=== PATIENT | female | born 1985 ===

== ENCOUNTER 2025-05-19 12:55 | Inpatient (IN) | payer OTHER, SELFPAY ==
--- OUTSIDE RECORDS SUMMARY | 2025-05-02 17:00 | XMS_ITS ---
Author Organization [facility] Address [address] [place] [address] Care Team Providers Care Copra Sampler Name Role Phone Anuel Laguna Primary Care Provider [phone] Migration, Provider Unavailable Unavailable Allergies Allergen (clinical drug ingredient) Drug/Non Drug Allergy documented on EMR Reaction Allergy Type Onset Date Status tramadol traMADol vomiting Drug Allergy Active amoxicillin Amoxicillin Unknown Drug Allergy Act morenita REASON FOR VISIT [facility] Encounter Medications Medication SIG (Take, Route, Frequency, Duration) Notes Start Date End Date Status MiraLax - ONE SCOOP IN 8 OUNCES WATER ORALLY ONCE A DAY for 30 DAYS *Please review and pick correct strength-formula tion from [employer] options. If intended option is not shown, discontinue and re-order from Quick Search* Active metFORMIN HCl ER 750 MG 1 tab(s) orally 2 times a day Active Cyclobenzaprine HCl 5 MG 1 tab(s) orally one in AM and 2 at bedtime for 30 days Active FREESTYLE LITE TEST STRIPS, 50 E11.9 TESTS TWICE A DAY for 50 DAYS *Please review for potential replacement for e-prescription and drug interaction check* Active Omeprazole 40 MG 1 cap(s) orally once a day for 90 days Active Glucose 4 GM 4 tab(s) chewed once for 30 days 08/11/2024 Active FREESTYLE LITE GLUCOSE MONITOR, 1 E11.9 TESTS DAILY for 365 DAYS *Please review for potential replacement for e-prescription and drug interaction check* 12/27/2023 Active Cetirizine HCl 10 MG 1 tab(s) orally once a day for 90 days Active Simvastatin 10 MG 1 tab(s) orally once a day (in the evening) for 90 days Active LANCETS, 100 E 11.9; TESTS TWICE A DAY for 50 DAYS *Please review for potential replacement for e-prescription and drug interaction check* Active OLANZapine 10 MG 1 tab(s) orally twice a day for 30 days 14 day 04/08/25 Ceballosivanna Shi Not-Taking Slynd 4 MG TAKE 1 TABLET BY MOUTH DAILY for 84 Active Gabapentin 800 MG 1 cap(s) orally 2 times a day for 30 days Active VARENICLINE 1 MG 1 TAB(S) ORALLY 2 TIMES A DAY *Please review for potential replacement for e-prescription and drug interaction check* Not-Taking LORazepam 1 MG 1 tab(s) orally twice a day for 28 days [facility] 04/08/25, Please note decrease in dose 04/09/2025 Not-Taking Ventolin HFA 108 (90 Base) MCG/ACT INHALE 2 PUFFS INTO THE LUNGS EVERY SIX HOURS for 16 Active SPIRIVA RESPIMAT 60 ACT 2.5 MCG/INH INHALE 2 PUFFS INTO THE LUNGS DAILY for 30 *Please review for potential replacement for e-prescription and drug interaction check* Active Mounjaro 7.5 MG/0.5 ML INJECT 7.5MG (1 PEN) SUBCUTANEOUSLY EVERY WEEK for 28 *Please review and pick correct strength-formula tion from [employer] options. If intended option is not shown, discontinue and re-order from Quick Search* Active Daily Multiple Vitamins MULTIPLE VITAMINS 1 TAB(S) ORALLY ONCE A DAY for 90 DAYS *Please review and pick correct strength-formula tion from [employer] options. If intended option is not shown, discontinue and re-order from Quick Search* 04/14/2025 Active Social History Sex Assigned At : Social History Observation Description Sex Assigned At Female Encounters Encounter Location Date Provider Diagnosis [facility] [address] [place] [address] 05/02/2025 Provider Migration Plan Of Treatment Next Appt Details Provider Name:Anuel Laguna, 05/21/2025 03:30:00 PM, [address] [place] [address], [phone], Provider Name:Colette flores, 05/26/2025 01:00:00 PM, [address] [place] [address], [phone], Provider Name:Severiano Dwyer, 06/04/2025 11:00:00 AM, [address] [facility], [place], [place], [phone], Progress Notes * Karol HAMB:1985 (39 yo F)Acc No.[id number]:05/02/2025 Patient: Karol SWENSON Provider: :1985 A ge:39 Y S ex:Female Date:05/02/2025 Address:[address] [place] [address], [address] Pcp:Anuel Laguna Subjective: * Chief Complaints: * 1 . [facility] Conversion Encounter. * Medical History: * Medications: T aking FREESTYLE LITE GLUCOSE MONITOR, 1 E11.9 TESTS DAILY , Notes to Pharmacist: *Please review for potential replacement for e-prescription and drug interaction check*, Taking Glucose 4 GM Tablet Chewable 4 tab(s) chewed once , Taking LANCETS, 100 E 11.9; TESTS TWICE A DAY , Notes to Pharmacist: *Please review for potential replacement for e-prescription and drug interaction check*, Taking Simvastatin 10 MG Tablet 1 tab(s) orally once a day (in the evening) , Taking Cetirizine HCl 10 MG Tablet 1 tab(s) orally once a day , Taking MiraLax - POWDER FOR RECONSTITUTION ONE SCOOP IN 8 OUNCES WATER ORALLY ONCE A DAY , Notes to Pharmacist: *Please review and pick correct strength-formulation from [facility] options. If intended option is not shown, discontinue and re-order from Quick Search*, Taking Omeprazole 40 MG Capsule Delayed Release 1 cap(s) orally once a day , Taking FREESTYLE LITE TEST STRIPS, 50 E11.9 TESTS TWICE A DAY , Notes to Pharmacist: *Please review for potential replacement for e-prescription and drug interaction check*, Taking Cyclobenzaprine HCl 5 MG Tablet 1 tab(s) orally one in AM and 2 at bedtime , Taking metFORMIN HCl ER 750 MG Tablet Extended Release 24 Hour 1 tab(s) orally 2 times a day , Taking SPIRIVA RESPIMAT 60 ACT 2.5 MCG/INH AEROSOL INHALE 2 PUFFS INTO THE LUNGS DAILY , Notes to Pharmacist: *Please review for potential replacement for e-prescription and drug interaction check*, Taking Ventolin HFA 108 (90 Base) MCG/ACT Aerosol Solution INHALE 2 PUFFS INTO THE LUNGS EVERY SIX HOURS , Taking Mounjaro 7.5 MG/0.5 ML SOLUTION INJECT 7.5MG (1 PEN) SUBCUTANEOUSLY EVERY WEEK , Notes to Pharmacist: *Please review and pick correct strength-formulation from [employer] options. If intended option is not shown, discontinue and re-order from Quick Search*, Taking Daily Multiple Vitamins MULTIPLE VITAMINS TABLET 1 TAB(S) ORALLY ONCE A DAY , Notes to Pharmacist: *Please review and pick correct strength-formulation from [employer] options. If intended option is not shown, discontinue and re-order from Quick Search*, Taking Gabapentin 800 MG Tablet 1 cap(s) orally 2 times a day , Taking Slynd 4 MG Tablet TAKE 1 TABLET BY MOUTH DAILY , Not-Taking/PRN OLANZapine 10 MG Tablet 1 tab(s) orally twice a day , Notes to Pharmacist: 14 day 04/08/25 Ceballos Jose Guadalupe, Not-Taking/PRN LORazepam 1 MG Tablet 1 tab(s) orally twice a day , Notes to Pharmacist: [facility] 04/08/25, Please note decrease in dose, Not-Taking/PRN VARENICLINE 1 MG TABLET 1 TAB(S) ORALLY 2 TIMES A DAY , Notes to Pharmacist: *Please review for potential replacement for e-prescription and drug interaction check* * Allergies: t raMADol: vomiting - Allergy, Amoxicillin: Lack of Therapeutic Effect. Objective: * Vitals: Assessment: Plan: * Treatment: * Images: Billing Information: * Visit Code: * Procedure Codes: * Electronic signature of Prov ider Migration on 05/19/2025 at 04:02 PM EDT Sign off status: Pending * Provider: Date: 05/02/2025 Generated for Kim solano/Page/Henrietta on: 05/19/2025 04:02 PM EDT
--- OUTSIDE RECORDS SUMMARY | 2025-05-14 05:30 | XMS_ITS ---
Author Organization [facility] Address [address] [place] [id number] Care Team Providers Care Brim Presser Name Role Phone Anuel Laguna Primary Care Provider Colette Gonzales Unavailable [phone] REASON FOR VISIT Office: Supportive Counseling Social History Sex Assigned At : Social History Observation Description Sex Assigned At Female Encounters Encounter Location Date Provider Diagnosis [facility] [address] [place] [phone] 05/14/2025 Colette Gonzales Plan Of Treatment Next Appt Details Provider Name:Anuel Luz Elena, 05/21/2025 03:30:00 PM, [address] [place] [address], [phone], Provider Name:Colette flores, 05/26/2025 01:00:00 PM, [address] [place] [address], [phone], Provider Name:Severiano Dwyer, 06/04/2025 11:00:00 AM, [address] [place] [address], [phone], Progress Notes * Karol HAMDOB:1985 (39 yo F)Acc No.[id number]:05/14/2025 Progress Notes Patient: Karol SWENSON Provider: Es Gonzales :1985 A ge:39 Y S ex:Female Date:05/14/2025 Address:[address] [place] [address], [place], [id number] Pcp:Anuel Laguna Subjective: * Chief Complaints: * 1 . Office: Supportive Counseling. * Medical History: Objective: * Vitals: Assessment: Plan: * Treatment: * Images: Billing Information: * Visit Code: * Procedure Codes: Care Plan Details* * Electronic signature of Hernán Gonzales on 05/19/2025 at 04:02 PM EDT Sign off status: Pending * Provider: Es Gonzales Date: 05/14/2025 Generated for Kim solano/Page/Henrietta on: 05/19/2025 04:02 PM EDT
--- OUTSIDE RECORDS SUMMARY | 2025-05-15 05:02 | XMS_ITS ---
Author Organization [facility] Address [address] [place] [address] Care Team Providers Care Bead Preparer Name Role Phone Anuel Laguna Primary Care Provider REASON FOR VISIT psych concerns Social History Sex Assigned At : Social History Observation Description Sex Assigned At Female Encounters Encounter Location Date Provider Diagnosis [address] [phone] 05/15/2025 Anuel Laguna Plan Of Treatment Next Appt Details Provider Name:Anuel Laguna, 05/21/2025 03:30:00 PM, [address] [place] [address], [phone], Provider Name:Colette flores, 05/26/2025 01:00:00 PM, [address] [place] [address], [phone], Provider Name:Severiano Dwyer, 06/04/2025 11:00:00 AM, [address] [place] [address], [id number], Progress Notes * Kraol HAMDOB:1985 (39 yo F)Acc No.[id number]:05/15/2025 Patient: Karol SWENSON :1985 A ge:39 Y S ex:Female Address:[address] [place] [phone] * * Date:
[2025-05-19 13:07] VITALS: BP 138/80; PULSE 82; O2SAT 99
[2025-05-19 13:08] VITALS: BP 119/81; PULSE 77; RESP 16; TEMP 36.1; O2SAT 100; BMI 30.9
[2025-05-19 13:22] VITALS: BP 119/81; PULSE 77; RESP 16; TEMP 36.1; O2SAT 100
--- NOTE | 2025-05-19 15:01 | ED.PSYCH ---
HPI - Psych General Chief Complaint: Psychiatric Symptoms Stated Complaint: delusional, not med compliant Time Seen by Provider: 05/19/25 13:17 History of Present Illness ED Provider: Garrett Gutierrez MD HPI Narrative: The patient comes from [facility] [place] [facility]. She has been felt to be delusional. No thoughts of suicide or self-harm or HI. Poor medication adherence. Related Data Home Medications ?Medication ?Instructions ?Recorded ?Confirmed cetirizine 10 mg tablet 10 mg PO DAILY 05/19/25 05/19/25 cyclobenzaprine 5 mg tablet 5 mg PO DAILY 05/19/25 05/19/25 gabapentin 800 mg tablet 800 mg PO BID 05/19/25 05/19/25 metformin 750 mg tablet,extended 750 mg PO BID 05/19/25 05/19/25 release 24 hr omeprazole 40 mg capsule,delayed 40 mg PO DAILY 05/19/25 05/19/25 release Allergies Allergy/AdvReac Type Severity Reaction Status Date / Time Seasonal Allergies Allergy Sneezing Verified 05/19/25 13:21 [facility] Social History Social History Household Members: None Housing: Apartment Do you presently have visiting nurse or other home services: Yes Patient Tobacco Use Status: Former Tobacco user Tobacco use type: Cigarette Smoked in Last 30 Days: No e-Cigarette/Vaping Use: Never Used Patient Interested in Nicotine Replacement: No Patient Given Instructions on How to Stop Smoking: No Second Hand Smoke Exposure: No Use of substances other than those prescribed or required for medical reasons: Yes Substance Use Type: Marijuana Substance Use Frequency: Daily Currently Displaying Signs/Symptoms of Drug Intoxication Withdrawal: No Spiritual Healthcare Practices: prays to God [facility] Practices: denies Cultural Healthcare Practices: denies Advance Directives: No Advance Directives Information Provided: No Do you have thoughts of harming others: None Do you have a plan to hurt others: No Plan Recently lost weight without trying: Unsure How much weight loss: Unsure Eating poorly because of decreased appetite: No Nutrition screen score: 4 Nutrition Risks: No Nutritional Risk Patient : No : No Poor oral hygiene: No Physical Exam Exam: Exam: Appearance: Alert. Oriented X3. No acute distress. Eyes: Pupils equal, round and reactive to light. ENT: Pharynx normal. Neck: Normal inspection. Neck supple. CVS: Normal heart rate and rhythm. Pulses normal. Respiratory: No respiratory distress. Breath sounds normal. Abdomen: Soft and nontender. Skin: Skin warm and dry. Normal skin color. Extremities: No lower extremity edema. Neuro: Oriented X 3. No motor deficit. No sensory deficit. cranial nerve exam not applicable Vital Signs: Vital Signs: Last Vital Signs Temp 98.6 F 05/20/25 08:25 Pulse 80 05/20/25 08:25 Resp 20 05/20/25 08:25 BP 137/81 05/20/25 08:25 Pulse Ox 97 05/20/25 08:25 O2 Del Method Room Air 05/20/25 08:25 BMI result Body Mass Index 30.9 Medications Administered Generic Name Dose Route Start Last Admin Trade Name Freq PRN Reason Stop Dose Admin Cyclobenzaprine HCl 5 mg 05/20/25 09:00 05/20/25 08:28 Cyclobenzaprine Hcl 5 Mg Tablet PO Not Given DAILY [facility] Gabapentin 800 mg 05/19/25 21:00 05/20/25 08:28 Gabapentin 400 Mg Capsule PO 800 mg BID ANJALI Administration Loratadine 10 mg 05/20/25 09:00 05/20/25 08:27 Loratadine 10 Mg Tablet PO 10 mg DAILY ANJALI Administration Metformin HCl 750 mg 05/19/25 21:00 05/20/25 08:27 Metformin Hcl Er 750 Mg Tab.Er.24h PO 750 mg BID [facility] Administration Omeprazole 40 mg 05/20/25 06:30 05/20/25 06:29 Omeprazole 40 Mg Capsule. PO 40 mg DAILY@0630 [facility] Administration Discontinued Medications Generic Name Dose Route Start Last Admin Trade Name Freq PRN Reason Stop Dose Admin Influenza Virus Vaccine 0.5 ml 05/19/25 18:42 05/20/25 08:29 Flu Vacc In8559-90(6mo Up)/Pf 0.5 Ml Syringe IM 05/19/25 18:43 Not Given .ONCE ONE Insulin Human Lispro 0 unit 05/19/25 21:00 05/20/25 12:18 Insulin Lispro 100 Unit/Ml 3 Ml Vial SUBCUT Not Given QIDACHS [facility] Protocol Medical Decision Making Medical Decision Making MDM Narrative: Medical Decision Makin-year-old female sent for delusions. The patient is not endorsing SI or HI and is comfortable. She is making spiritual gestures and does not appear in any distress. She has no acute medical complaints and her medical workup is reassuring. Specifically patient has nonspecific leukocytosis 11.2 with no clinical signs of infection nor any documented fever. There was no neutrophil predominance or bands. Patient has minimal transaminitis which could be multifactorial. No indication for acute imaging this is a patient has no abdominal pain or bilirubin elevation. If workup is pursued non emergently would recommend repeat LFTs in 48 hours if up trending GI consultation would be warranted Preliminary Favored Differential Diagnosis: Behavioral health decompensation, psychosis, among additional considered etiologies Testing Interpreted Independently: ?See below for details Radiology or Lab testing Results Reviewed: ?See below for details Consults: ?Behavioral health team Independent Historians/External Chart Reviews: ?See below for details Social Determinants of Health Impacting MDM/Planning: ?See below for details Lab Data 05/19/25 14:59 05/19/25 14:59 Labs: Lab Results 05/19/25 Range/Units 14:59 WBC 11.2 H (4.8-10.8) X10*3/uL RBC 5.10 (4.20-5.50) X10*6/uL Hgb 14.6 (12.0-16.0) g/dl Hct 45.7 (37.0-47.0) % MCV 89.6 (80.0-98.0) fL MCH 28.6 (27.0-33.0) pg MCHC 31.9 (31.0-35.0) g/dl RDW 13.6 (11.0-16.0) % Plt Count 231 (160-400) X10*3/uL MPV 9.2 L (9.4-12.3) fL Immature Gran % (Auto) 0.3 (0.0-0.4) % Neut % (Auto) 56.2 (45-73) % Lymph % (Auto) 36.0 (20-40) % Arthur % (Auto) 4.8 (2-11) % Eos % (Auto) 2.4 (0-4) % Baso % (Auto) 0.3 (0-2) % Lymph # (Auto) 4.0 (1.2-4.9) X10*3/uL Arthur # (Auto) 0.5 (0.1-1.2) X10*3/uL Eos # (Auto) 0.3 (0.0-0.4) X10*3/uL Baso # (Auto) 0.0 (0.0-0.2) X10*3/uL Abs Immat Gran (auto) 0.03 (0.00-0.03) X10*3/uL Absolute Neuts (auto) 6.3 (2.0-8.3) x10*3/uL Absolute Nucleated RBC 0.000 (0.0-0.012) X10*3/uL Nucleated RBC % (auto) 0.0 (0.0-0.2) /100WBC Sodium 143 (135-145) mmol/L Potassium 3.8 (3.3-5.1) mmol/L Chloride 107 (96-108) mmol/L Carbon Dioxide 26 (22-29) mmol/L Anion Gap 14 (12-20) BUN 10 (9-16) mg/dL Creatinine 0.71 (0.5-1.4) mg/dL Estim Creat Clear Calc 108.8 Estimated GFR > 60 Random Glucose 73 (60-115) mg/dL Calcium 9.8 (8.4-10.2) mg/dL Total Bilirubin 0.6 (0.0-1.0) mg/dL AST 57 H (5-31) U/L ALT 95 H (0-31) U/L Alkaline Phosphatase 136 H (39-117) U/L Total Protein 8.4 H (6.5-8.0) g/dL Albumin 5.1 H (3.5-5.0) g/dL Ethyl Alcohol < 10 mg/dL Discharge Plan Discharge Clinical Impression: Acute anxiety Patient Disposition: Admitted As Inpatient Interventions: Admission Worksheet (ED) Last Done: 05/19/25 17:39 Discharge Date/Time: 05/19/25 17:40
[2025-05-19 15:07] LABS: MANUAL DIFF FLAG NO
[2025-05-19 15:08] LABS: Hematocrit 45.7 % (37.0-47.0); Hemoglobin 14.6 g/dl (12.0-16.0); Imm Gran Abs Auto 0.03 X10*3/uL (0.00-0.03); Imm Gran Pct Auto 0.3 % (0.0-0.4); Lymphocytes Absolute Auto 4.0 X10*3/uL (1.2-4.9); Mean Corpuscular HGB Conc 31.9 g/dl (31.0-35.0); Mean Corpuscular Hemoglobin 28.6 pg (27.0-33.0); Mean Corpuscular Volume 89.6 fL (80.0-98.0); NRBC Abs Auto 0.000 X10*3/uL (0.0-0.012); NRBC Pct Auto 0.0 /100WBC (0.0-0.2); Platelet Count 231 X10*3/uL (160-400); Red Blood Count 5.10 X10*6/uL (4.20-5.50); White Blood Count 11.2 X10*3/uL (4.8-10.8)
[2025-05-19 15:25] LABS: Alanine Aminotransferase 95 U/L (0-31); Albumin Level 5.1 g/dL (3.5-5.0); Alkaline Phosphatase 136 U/L (39-117); Anion Gap 14 (12-20); Aspartate Amino Transferase 57 U/L (5-31); Blood Urea Nitrogen 10 mg/dL (9-16); Calcium 9.8 mg/dL (8.4-10.2); Carbon Dioxide 26 mmol/L (22-29); Chloride 107 mmol/L (96-108); Creatinine Clr Calc Pharmacy 108.8; Estimated Glomerular Filt Rate > 60; Potassium 3.8 mmol/L (3.3-5.1); Sodium 143 mmol/L (135-145); Total Protein 8.4 g/dL (6.5-8.0)
--- OUTSIDE RECORDS SUMMARY | 2025-05-19 16:03 | XMS_ITS | Patient Health Record ---
Author Organization [facility] Address [address] [place] [address] Care Team Providers [facility] Name Role Phone AbelinoRodney thomasw Primary Care Provider Severiano Dwyer Unavailable [phone] [facility], Nursing Unavailable [phone] Colette Gonzales Unavailable [phone] [facility], CHW Unavailable [phone] Migration, Provider Unavailable Unavailable Allergies Allergen (clinical drug ingredient) Drug/Non Drug Allergy documented on EMR Reaction Allergy Type Onset Date Status tramadol traMADol vomiting Drug Allergy Active amoxicillin Amoxicillin Unknown Drug Allergy Act morenita Results Component Value Reference Range Notes HEMOGLOBIN A1c Reviewed date:10/17/2024 12:15:32 PM Interpretation:7.4 Performing Lab:NL2, [facility] [employer] [id number] Ash Brown Notes/Report: NON-FASTING NON-FASTING HEMOGLOBIN A1c TNP TEST NOT PERFORMED No lavender-top tube received. ADD ON BASIC METABOLIC PANEL Reviewed date:10/14/2024 02:16:45 PM Interpretation:glu 215 Performing Lab:NL2, [facility] [employer] [id number] Ash Brown Notes/Report: NON-FASTING NON-FASTING GLUCOSE 215 65-99 mg/dL Fasting reference interval For someone without known diabetes, a glucose value >125 mg/dL indicates that they may have diabetes and this should be confirmed with a follow-up test. UREA NITROGEN (BUN) 12 7-25 mg/dL CREATININE 0.76 0.50-0.97 mg/dL EGFR 102 > OR = 60 mL/min/1.73m2 BUN/CREATININE RATIO SEE NOTE: 6-22 (calc) Not Reported: BUN and Creatinine are within reference range. SODIUM 135 135-146 mmol/L POTASSIUM 4.4 3.5-5.3 mmol/L CHLORIDE 102 98-110 mmol/L CARBON DIOXIDE 21 20-32 mmol/L CALCIUM 9.7 8.6-10.2 mg/dL COMMENT An add-on panel was requested on a serum sample that has been in storage beyond the published stability of various analytes. Certain analytes, including CO2, Potassium, Sodium, Chloride and Total Bilirubin (if applicable) are more sensitive to extended storage. Clinical correlation is recommended for those tests. BASIC METABOLIC PANEL Reviewed date:01/01/2025 05:05:16 PM Interpretation:glu 142 Performing Lab:PFSweb, [facility] Ash Brown Notes/Report: NON-FASTING NON-FASTING GLUCOSE 142 65-99 mg/dL Fasting reference interval For someone without known diabetes, a glucose value >125 mg/dL indicates that they may have diabetes and this should be confirmed with a follow-up test. UREA NITROGEN (BUN) 10 7-25 mg/dL CREATININE 0.76 0.50-0.97 mg/dL EGFR 102 > OR = 60 mL/min/1.73m2 BUN/CREATININE RATIO SEE NOTE: 6-22 (calc) Not Reported: BUN and Creatinine are within reference range. SODIUM 138 135-146 mmol/L POTASSIUM 4.4 3.5-5.3 mmol/L CHLORIDE 103 98-110 mmol/L CARBON DIOXIDE 26 20-32 mmol/L CALCIUM 9.6 8.6-10.2 mg/dL HEMOGLOBIN A1c Reviewed date:01/01/2025 05:06:10 PM Interpretation:7.4 Performing Lab:[facility], [facility]–1983, [facility] Ash Brown Notes/Report: NON-FASTING NON-FASTING HEMOGLOBIN A1c 7.4 <5.7 % of total Hgb For someone without known diabetes, a hemoglobin A1c value of 6.5% or greater indicates that they may have diabetes and this should be confirmed with a follow-up test. For someone with known diabetes, a value <7% indicates that their diabetes is well controlled and a value greater than or equal to 7% indicates suboptimal control. A1c targets should be individualized based on duration of diabetes, age, comorbid conditions, and other considerations. Currently, no consensus exists regarding use of hemoglobin A1c for diagnosis of diabetes for children. MICROALBUMIN, RANDOM URINE ( W/CREATININE) Reviewed date:02/16/2025 01:10:11 PM Interpretation:Normal Performing Lab:PFSweb, [facility] Ash Brown Notes/Report: NON-FASTING NON-FASTING NON-FASTING CREATININE, RANDOM URINE 158 20-275 mg/dL ALBUMIN, URINE 0.5 See Note: mg/dL Reference Range: Reference Range Not established ALBUMIN/CREATININE RATIO, RANDOM URINE 3 <30 mg/g creat The ADA defines abnormalities in albumin excretion as follows: Albuminuria Category Result (mg/g creatinine) Normal to Mildly increased <30 Moderately increased 30-299 Severely increased > OR = 300 The ADA recommends that at least two of three specimens collected within a 3-6 month period be abnormal before considering a patient to be within a diagnostic category. HEPATIC FUNCTION PANEL Reviewed date:02/11/2025 08:17:03 AM Interpretation:AST/ALT; FIB 4 1.25 Performing Lab:PFSweb, [facility] Ash Martinez Notes/Report: NON-FASTING NON-FASTING NON-FASTING PROTEIN, TOTAL 7.1 6.1-8.1 g/dL ALBUMIN 4.3 3.6-5.1 g/dL GLOBULIN 2.8 1.9-3.7 g/dL (calc) ALBUMIN/GLOBULIN RATIO 1.5 1.0-2.5 (calc) BILIRUBIN, TOTAL 0.6 0.2-1.2 mg/dL BILIRUBIN, DIRECT 0.1 < OR = 0.2 mg/dL BILIRUBIN, INDIRECT 0.5 0.2-1.2 mg/dL (calc) ALKALINE PHOSPHATASE 109 31-125 U/L AST 46 10-30 U/L ALT 61 6-29 U/L CBC (H/H, RBC, INDICES, WBC, PLT) Reviewed date:02/11/2025 07:32:43 AM Interpretation:Normal Performing Lab:NLPFSweb, [facility] Women[facility] Jessikajosé Alondra Brown Notes/Report: NON-FASTING NON-FASTING NON-FASTING WHITE BLOOD CELL COUNT 8.5 3.8-10.8 Thousand/ uL RED BLOOD CELL COUNT 4.65 3.80-5.10 Million/uL HEMOGLOBIN 13.7 11.7-15.5 g/dL HEMATOCRIT 42.1 35.0-45.0 % MCV 90.5 80.0-100.0 fL MCH 29.5 27.0-33.0 pg MCHC 32.5 32.0-36.0 g/dL For adults, a slight decrease in the calculated MCHC value (in the range of 30 to 32 g/dL) is most likely not clinically significant; however, it should be interpreted with caution in correlation with other red cell parameters and the patient's clinical condition. RDW 12.6 11.0-15.0 % PLATELET COUNT 189 140-400 Thousand/uL MPV 10.5 7.5-12.5 fL MR Brain Angiography WO Reviewed date:02/28/2025 01:56:08 PM Interpretation:Negative Performing Lab: Notes/Report: Negative ADD ON BASIC METABOLIC PANEL Reviewed date:10/09/2024 04:25:09 PM Interpretation:glu 215 Performing Lab:MARNIE, [facility] Women[facility] Jessikajosé Alondra Brown Notes/Report: NON-FASTING NON-FASTING GLUCOSE 215 65-99 mg/dL Fasting reference interval For someone without known diabetes, a glucose value >125 mg/dL indicates that they may have diabetes and this should be confirmed with a follow-up test. UREA NITROGEN (BUN) 12 7-25 mg/dL CREATININE 0.76 0.50-0.97 mg/dL EGFR 102 > OR = 60 mL/min/1.73m2 BUN/CREATININE RATIO SEE NOTE: 6-22 (calc) Not Reported: BUN and Creatinine are within reference range. SODIUM 135 135-146 mmol/L POTASSIUM 4.4 3.5-5.3 mmol/L CHLORIDE 102 98-110 mmol/L CARBON DIOXIDE 21 20-32 mmol/L CALCIUM 9.7 8.6-10.2 mg/dL COMMENT An add-on panel was requested on a serum sample that has been in storage beyond the published stability of various analytes. Certain analytes, including CO2, Potassium, Sodium, Chloride and Total Bilirubin (if applicable) are more sensitive to extended storage. Clinical correlation is recommended for those tests. LIPID PANEL Reviewed date:03/27/2025 08:01:01 AM Interpretation:LDL 82 Performing Lab: Notes/Report: LDL 82 TRIGLYCERIDES 170 CHOLESTEROL, TOTAL 153 HDL CHOLESTEROL 37 LDL-CHOLESTEROL 82 TSH Reviewed date:03/27/2025 08:01:45 AM Interpretation:Normal Performing Lab: Notes/Report: Normal TSH 2.02 HEMOGLOBIN A1c Reviewed date:03/27/2025 08:02:28 AM Interpretation:6.7 Performing Lab: Notes/Report: 6.7 HEMOGLOBIN A1c 6.7 FOLATE, SERUM Reviewed date:03/27/2025 08:40:28 AM Interpretation:Normal Performing Lab: Notes/Report: Normal FOLATE, SERUM 14.1 VITAMIN B12 Reviewed date:03/27/2025 08:41:08 AM Interpretation:Normal Performing Lab: Notes/Report: Normal VITAMIN B12 718 VITAMIN D,25-OH,TOTAL,IA Reviewed date:03/27/2025 08:41:44 AM Interpretation:Normal Performing Lab: Notes/Report: Normal VITAMIN D,25-OH,TOTAL,IA 50 RPR (DX) W/REFL TITER AND CO NFIRMATORY TESTING Reviewed date:03/31/2025 01:21:05 PM Interpretation:nonreactive Performing Lab: Notes/Report: nonreactive CATRACHITA IFA, W/REFL TO TITER/PAT TERN/CASCADE Reviewed date:04/03/2025 08:40:56 AM Interpretation:1:80 Performing Lab: Notes/Report: 1:80 DNA (DS) ANTIBODY 1:80 centromere CATRACHITA SCREEN, IFA POS Diabetic Foot Exam Reviewed date:04/14/2025 10:20:56 PM Interpretation:Normal Performing Lab: Notes/Report: Normal Reason For Referral Reason PT-1 to [facility] of [address] - 12 visits/ year Referral Organization [facility] Referring Provider First Name Anuel Referring Provider Last Name Luz Elena Referring Provider Speciality Internal M edicine Referred Provider PT, -1 Referral Priority Routine Reason Rula, [address] [place] [address] P: [phone] F: [phone] For repairs to walker Diagnosis 1 Chronic obstructive pulmonary disease, unspecified (J44.9) Diagnosis 2 Lumbago with sciatic a, unspecified side (M54.40) Referral Organization [facility] Referring Provider First Name Anuel Referring Provider Last Name Luz Elena Referring Provider Speciality Internal edicine Referred Provider [facility] General Notes Alicia Fulton 08:21:19 AM > Faxed to Nayeli Huerta Katelyn 11/25/2024 01:58:38 PM > all set - repairs completed Referral Priority Routine Reason [facility], [address] [place] [address] Bandar Khanna, [place], [place] P: [phone] F: [phone] Hall: [facility] neuroendovascular. Per our converation 01/06, woman with FH anueyrsmal rupture (It seems) who had 2 mm carotid cave aneurysm on MR study this month. Thank you for calling her to schedule! Referral Organization [facility] Referring Provider First Name Anuel Referring Provider Last Name Luz Elena Referring Provider Speciality Internal edicine Referred Provider [facility]rology ([facility]) Referred Provider Specialty Neurology General Notes Anuel Laguna 01/06 05:37:28 PM >is office will call her to schedule. He has the phonenKirstin diehl Paris 01/07/2025 08:36:55 AM > [facility] Katelyn 04/14/2025 09:54:31 AM > pt seen note requested Referral Priority Routine Referral Appointment Date 02/19/2025 Reason Judit Ro llator repair specifically the back wheels Diagnosis 1 Chronic obstructive pulmonary disease, unspecified (J44.9) Diagnosis 2 Lumbago with sciatic a, unspecified side (M54.40) Referral Organization [facility] Referring Provider First Name Anuel Referring Provider Last Name Luz Elena Referring Provider Speciality Internal edicine Referred Provider [facility] General Notes Rubi Tyler 01/30/2025 11:32:34 AM > faxed to Nayeli huerta Katelyn 02/09/2025 10:20:56 AM > wheels changed Referral Priority Routine Reason Davis MS. Ham needs assistance with bathing, cooking and shopping. She is moving to her own apartment and now needs [employer] services. Referral Organization [facility] Referring Provider First Name Anuel Referring Provider Last Name Abelinomartha Referring Provider Speciality Internal M edicine General Notes Krysta Ambriz 04/29 09:17:39 AM > faxed Referral Priority Routine Medications Medication SIG (Take, Route, Frequency, Duration) Notes Start Date End Date Status Slynd 4 mg TAKE 1 TABLET BY MOUTH DAILY for 84 Active Glucose 4 GM 4 tab(s) chewed once for 30 days 08/11/2024 Active FREESTYLE LITE GLUCOSE MONITOR, 1 E11.9 TESTS DAILY for 365 DAYS *Please review for potential replacement for e-prescription and drug interaction check* 12/27/2023 Active Ventolin HFA 108 (90 Base) MCG/ACT INHALE 2 PUFFS INTO THE LUNGS EVERY SIX HOURS for 16 Active SPIRIVA RESPIMAT 60 ACT 2.5 MCG/INH INHALE 2 PUFFS INTO THE LUNGS DAILY for 30 *Please review for potential replacement for e-prescription and drug interaction check* Active Mounjaro 7.5 MG/0.5ML INJECT 7.5MG (1 PEN) SUBCUTANEOUSLY EVERY WEEK for 28 Active MiraLax - ONE SCOOP IN 8 OUNCES WATER ORALLY ONCE A DAY for 30 DAYS *Please review and pick correct strength-formula tion from [employer] options. If intended option is not shown, discontinue and re-order from Quick Search* Active OLANZapine 10 MG 1 tab(s) orally twice a day for 30 days 14 day 04/08/25 Tucker Shi Not-Taking Cetirizine HCl 10 MG 1 tab(s) orally once a day for 90 days Active Simvastatin 10 MG 1 tab(s) orally once a day (in the evening) for 90 days Active Gabapentin 800 MG 1 cap(s) orally 2 times a day for 30 days Active LANCETS, 100 E 11.9; TESTS TWICE A DAY for 50 DAYS *Please review for potential replacement for e-prescription and drug interaction check* Active Daily Multiple Vitamins MULTIPLE VITAMINS 1 TAB(S) ORALLY ONCE A DAY for 90 DAYS *Please review and pick correct strength-formula tion from [employer] options. If intended option is not shown, discontinue and re-order from Quick Search* 04/14/2025 Active Varenicline Tartrate 1 mg TAKE 1 TABLET BY MOUTH TWICE A DAY for 28 Active metFORMIN HCl ER 750 MG 1 [...] once a day for 90 days Active LORazepam 1 MG 1 tab(s) orally twice a day for 28 days [facility] 04/08/25, Please note decrease in dose 04/09/2025 Not-Taking Immunizations Vaccine Route Administration Date Status Comme nts Moderna Covid-19 Vaccine Administration - First Dose (Single Dose 100MCG/0.5ML 1ST) IM Intramuscular 12/29/2020 Administered Moderna Covid-19 Vaccine Administration - Second Dose (Single Dose 100 MCG/0.5ML 2ND) IM Intramuscular 02/03/2021 Administered Tdap IM Intramuscular 06/21/2023 Administered Social History Tobacco Use: Social History Observation Description Date Details (start date - stop date) Current Smoker NA - NA Sex Assigned At : Social History Observation Description Sex Assigned At Female Tobacco Use Assessment MU Question Answer Notes What is your current smoking status? current smoker How often do you smoke? every day How many cigarettes a day do you smoke? 6-[address] How soon after you wake up d o you smoke your first cigarette? 6-30 minutes Are you interested in quitting? has been cutting down on smoking gradually as a strategy to quit smoking Patient counseled on the sam gers of tobacco use and advised to quit: 08/23/2023 Problems Problem Type SNOMED Code ICD Code Onset Dates Problem Status W/U Status Risk Notes Problem Diabetic peripheral neuropathy associated with type 2 diabetes mellitus (4129508594703) Type 2 diabetes mellitus with diabetic neuropathy, unspecified (E11.40) Active confirmed Problem Type II diabetes mellitus without complication (035984395) Type 2 diabetes mellitus without complications (E11.9) Active confirmed Problem Morbid obesity (disorder) (593588546) Morbid (severe) obesity due to excess calories (E66.01) Active confirmed Problem Hyperlipidemia (55467176) Hyperlipidemia, unspecified (E78.5) Active confirmed Problem Cannabis abuse (96742877) 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) Active confirmed Problem Cannabis dependence (16728149) Cannabis dependence, uncomplicated (F12.20) Active confirmed Problem Tobacco user (190716583) Nicotine dependence, cigarettes, uncomplicated (F17.210) Active confirmed Problem Delusional disorder (69770670) Delusional disorders (F22) Active confirmed Problem Moderate recurrent major depression (06371489) Major depressive disorder, recurrent, moderate (F33.1) Active confirmed Problem Anxiety disorder (084005322) Anxiety disorder, unspecified (F41.9) Active confirmed Problem Post-traumatic stress disorder (47698973) Post-traumatic stress disorder, unspecified (F43.10) Active confirmed Problem Obstructive sleep apnea syndrome (disorder) (04723234) Obstructive sleep apnea (adult) (pediatric) (G47.33) Active confirmed Problem Hereditary disorder of nervous system (553610127) Hereditary and idiopathic neuropathy, unspecified (G60.9) Active confirmed Problem Hearing loss (37650283) Unspecified hearing loss, left ear (H91.92) Active confirmed Problem Aneurysm (921774569) Aneurysm of unspecified site (I72.9) Active confirmed Problem Chronic obstructive pulmonary disease (77906046) Chronic obstructive pulmonary disease, unspecified (J44.9) Active confirmed Problem Complete edentulism (352857045) Complete loss of teeth, unspecified cause, unspecified class (K08.109) Active confirmed Problem Gastro-esophageal reflux disease without esophagitis (293172721) Gastro-esophagea l reflux disease without esophagitis (K21.9) Active confirmed Problem Slow transit constipation (05989121) Slow transit constipation (K59.01) Active confirmed Problem Sciatica (57777925) Lumbago with sciatica, unspecified side (M54.40) Active confirmed Problem Bursal cyst (7526316) Other bursal cyst, unspecified site (M71.30) Active confirmed Problem Plantar fascial fibromatosis (16011046) Plantar fascial fibromatosis (M72.2) Active confirmed Problem Tobacco use (775027870) Tobacco use (Z72.0) Active confirmed Problem Family history of stroke (352765273) Family history of stroke (Z82.3) Active confirmed Problem Sheltered homelessness (377740666070886) Sheltered homelessness (Z59.01) Active confirmed Problem Body mass index 40+ - severely obese (985350977) Body mass index [BMI] 40.0-44.9, adult (Z68.41) Active confirmed Problem Body mass index 35.00 to 39.99 (107418649187775) Body mass index [BMI] 39.0-39.9, adult (Z68.39) Inactive confirmed Vital Signs Temperature 97.7 degrees Fahrenheit 04/30/2025 Blood pressure diastolic 76 04/30/2025 Oximetry 98 04/30/2025 Height 64 in 04/30/2025 Blood pressure systolic 127 04/30/2025 Weight 231.5 lbs 04/30/2025 BMI 39.73 kg/m2 04/30/2025 Encounters Encounter Location Date Provider Diagnosis [address] [address] 05/02/2025 Provider Migration [facility] for [address] [id number] 06/26/2024 Anuel Laguna Encounter for screening for COVID-19 Z11.52 ; Chronic obstructive pulmonary disease, unspecified J44.9 ; Sheltered homelessness Z59.01 ; Tobacco use Z72.0 ; Type 2 diabetes mellitus without complications E11.9 ; Body mass index [BMI] 40.0-44.9, adult Z68.41 ; Morbid (severe) obesity due to excess calories E66.01 ; Anxiety disorder, unspecified F41.9 and Obstructive sleep apnea (adult) (pediatric) G47.33 [facility] for [address] [id number] 08/07/2024 Anuel Laguna Encounter for screening for COVID-19 Z11.52 ; Nicotine dependence, cigarettes, uncomplicated F17.210 ; Type 2 diabetes mellitus without complications E11.9 ; Tobacco use Z72.0 ; Obstructive sleep apnea (adult) (pediatric) G47.33 ; Morbid (severe) obesity due to excess calories E66.01 and Body mass index [BMI] 40.0-44.9, adult Z68.41 [facility] for [address] [id number] 09/30/2024 Anuel Laguna Encounter for screening for COVID-19 Z11.52 ; Type 2 diabetes mellitus without complications E11.9 ; Chronic obstructive pulmonary disease, unspecified J44.9 ; Nicotine dependence, cigarettes, uncomplicated F17.210 ; Sheltered homelessness Z59.01 ; Anxiety disorder, unspecified F41.9 ; Morbid (severe) obesity due to excess calories E66.01 ; Body mass index [BMI] 40.0-44.9, adult Z68.41 and Lumbago with sciatica, unspecified side M54.40 [facility] for [address] [id number] 10/02/2024 [facility] Type 2 diabetes mellitus without complications E11.9 [facility] for [address] [id number] 10/09/2024 Nursing [facility] Type 2 diabetes mellitus without complications E11.9 [facility] for [address] [id number] 11/25/2024 Anuel Laguna Encounter for screening for COVID-19 Z11.52 ; Type 2 diabetes mellitus without complications E11.9 ; Encounter for other screening for malignant neoplasm of breast Z12.39 ; Body mass index [BMI] 40.0-44.9, adult Z68.41 ; Morbid (severe) obesity due to excess calories E66.01 ; Family history of stroke Z82.3 ; Nicotine dependence, cigarettes, uncomplicated F17.210 and Obstructive sleep apnea (adult) (pediatric) G47.33 [facility] for [address] [id number] 01/06/2025 Anuel Laguna Encounter for screening for COVID-19 Z11.52 ; Aneurysm of unspecified site I72.9 ; Type 2 diabetes mellitus without complications E11.9 ; Morbid (severe) obesity due to excess calories E66.01 and Sheltered homelessness Z59.01 [facility] [address] [place] [id number] 01/15/2025 [facility] for [address] [id number] 02/10/2025 Nursing [facility] Type 2 diabetes mellitus without complications E11.9 and Morbid (severe) obesity due to excess calories E66.01 [facility] for [address] [id number] 02/26/2025 Severiano Dwyer Major depressive disorder, recurrent, moderate F33.1 ; Post-traumatic stress disorder, unspecified F43.10 ; Anxiety disorder, unspecified F41.9 ; Delusional disorders F22 ; Type 2 diabetes mellitus without complications E11.9 ; Morbid (severe) obesity due to excess calories E66.01 ; Nicotine dependence, cigarettes, uncomplicated F17.210 ; Cannabis dependence, uncomplicated F12.20 and Encounter for screening for COVID-[address] Z[address] [id number] 03/05/2025 Anuel Laguna Encounter for screening for COVID-19 Z11.52 ; Plantar fascial fibromatosis M72.2 ; Type 2 diabetes mellitus with diabetic neuropathy, unspecified E11.40 ; Hereditary and idiopathic neuropathy, unspecified G60.9 ; Tobacco use Z72.0 ; Sheltered homelessness Z59.01 ; Body mass index [BMI] 40.0-44.9, adult Z68.41 and Morbid (severe) obesity due to excess calories E66.[address] [id number] 03/05/2025 Colette Gonzales Major depressive disorder, recurrent, moderate F33.1 ; Post-traumatic stress disorder, unspecified F43.10 and Encounter for screening for COVID-19 Z11.[address] [id number] 04/09/2025 Severiano Dwyer Delusional disorders F22 ; Post-traumatic stress disorder, unspecified F43.10 ; Anxiety disorder, unspecified F41.9 and Encounter for screening for COVID-19 Z11.[address] [id number] 04/14/2025 Anuel Laguna Encounter for screening for COVID-19 Z11.52 ; Type 2 diabetes mellitus with diabetic neuropathy, unspecified E11.40 ; Chronic obstructive pulmonary disease, unspecified J44.9 ; Sheltered homelessness Z59.01 ; Tobacco use Z72.0 ; Post-traumatic stress disorder, unspecified F43.10 ; Type 2 diabetes mellitus without complications E11.9 ; Obstructive sleep apnea (adult) (pediatric) G47.33 ; Family history of stroke Z82.3 ; Hereditary and idiopathic neuropathy, unspecified G60.9 ; Body mass index [BMI] 40.0-44.9, adult Z68.41 and Morbid (severe) obesity due to excess calories E66.01 [facility] [address], [place] [id number] 04/16/2025 Colette Gonzales Delusional disorders F22 ; Major depressive disorder, recurrent, moderate F33.1 ; Post-traumatic stress disorder, unspecified F43.10 and Encounter for screening for COVID-19 Z11.52 [facility] [address], [place] [id number] 04/30/2025 Severiano Spearsvey Delusional disorders F22 ; Post-traumatic stress disorder, unspecified F43.10 ; Anxiety disorder, unspecified F41.9 and Encounter for screening for COVID-[address] [address] 05/15/2025 [facility] [address] [phone] 05/19/[address] [phone] 08/08/[address] [phone] 08/11/[address] [phone] 09/02/2024 [facility] [address] [place] [id number] 09/02/2024 [facility] [address] [place] [id number] 09/10/[address] [phone] 09/19/[address] [phone] 09/30/[address] [id number] 09/30/[address] [id number] 09/30/[address] [id number] 10/13/2024 Anuel Laguna [facility] [address] [place], [place] [phone] 10/14/2024 Anuel Laguna [facility] [address] [place] [phone] 10/14/2024 Anuel Laguna [facility] [address] [place] [phone] 11/03/2024 Anuel Laguna Type 2 diabetes mellitus without complications E11.9 [facility] [address] [place], [place] [phone] 12/16/2024 Anuel Laguna [facility] [address] [place], [place] [phone] 01/14/2025 Anuel Laguna [facility] [address] [place] [phone] 01/15/2025 Anuel Laguna [facility] [address] [place] [phone] 01/27/2025 Anuel Laguna [facility] [address] [place] [phone] 01/28/2025 Anuel Laguna [facility] [address] [place] [phone] 01/29/2025 Anuel Laguna [facility] [address] [place] [phone] 02/10/2025 Anuel Laguna [facility] [address] [place] [id number] 02/17/2025 Anuel Laguna [facility] [address] [place], [place] [phone] 03/09/2025 Anuel Laguna [facility] [address] [place] [phone] 03/13/2025 Anuel Laguna [facility] [address] [place] [id number] 03/24/2025 Anuel Laguna [facility] [address] [place] [id number] 03/26/2025 Severiano Dwyer [facility] [address] [place] [phone] 04/21/2025 Anuel Laguna [facility] [address] [place] [phone] 04/28/2025 Anuel Laguna [facility] [address] [place] [phone] 04/28/2025 Anuel Laguna [facility] [address] [place] [address] 04/28/2025 Anuel Laguna [address] [phone] 04/28/2025 Anuel Laguna Assessments Encounter Date Diagnosis (ICD Code) Assessment Notes Treatment Notes Treatment Clinical Notes Section Notes 06/26/2024 Chronic obstructive pulmonary disease, unspecified (ICD-10 - J44.9) We reveiwed her PFT- c/w COPD GOLD 2; no bronchodiato repsobnse. As chris has not exacerbbations requiring treatment will switch form inhaled steroid to LAMA. We reveiwe respimat video [facility] drug list. Continues to have Ventolin rescue emphasized smoking cessation 06/26/2024 Encounter for screening for COVID-19 (ICD-10 - Z11.52) Covid screening is negative. Discussed in detail with patient how to practice social distancing by avoiding public spaces and crowds now, wearing a mask in public to keep nose and mouth covered, and washing hands frequently especially before eating and after using the bathroom. Return to clinic if you develop any symtpoms of concern to be rescreened or go to the emergency room if you are having concerning symptoms for COVID-19. 08/07/2024 Nicotine dependence, cigarettes, uncomplicated (ICD-10 - F17.210) 5 irisalondra discusson of smoking cesation. She has trouble with patch, did not like lozenge taste and nows the oral habit and cracving are an issue. After looking at sinlge agent and combo options, went with Chantix alone firts, knowing we can add patch. has to not buy cigarettes and dealing with the compulsion gayle be hard. Chantixx 0.5 qd then 1.0 qd then 1 mg bid 08/07/2024 Encounter for screening for COVID-19 (ICD-10 - Z11.52) Covid screening is negative. Discussed in detail with patient how to practice social distancing by avoiding public spaces and crowds now, wearing a mask in public to keep nose and mouth covered, and washing hands frequently especially before eating and after using the bathroom. Return to clinic if you develop any symtpoms of concern to be rescreened or go to the emergency room if you are having concerning symptoms for COVID-19. 09/30/2024 Type 2 diabetes mellitus without complications (ICD-10 - E11.9) Dieat and steroid issues. We discussed blower crab diet-will be tough. Increase Ozempic to 1 mg 09/30/2024 Encounter for screening for COVID-19 (ICD-10 - Z11.52) Covid screening is negative. Discussed in detail with patient how to practice social distancing by avoiding public spaces and crowds now, wearing a mask in public to keep nose and mouth covered, and washing hands frequently especially before eating and after using the bathroom. Return to clinic if you develop any symtpoms of concern to be rescreened or go to the emergency room if you are having concerning symptoms for COVID-19. 10/02/2024 Type 2 diabetes mellitus without complications (ICD-10 - E11.9) Labs drawn per protocol, no difficulties, sent to lab, pt to RTC for f/u Doctor's note that was written by provider printed and given to pt. 10/09/2024 Type 2 diabetes mellitus without complications (ICD-10 - E11.9) Labs drawn per protocol, no difficulties, sent to lab, pt to RTC for f/u 11/25/2024 Type 2 diabetes mellitus without complications (ICD-10 - E11.9) glucose control ereeasonable but not perfect We disvcussed diet Will inceras eOZempic to 2 mg She is Ok with monitroing bid 3 days a weke 11/25/2024 Encounter for screening for COVID-19 (ICD-10 - Z11.52) Covid screening is negative. Discussed in detail with patient how to practice social distancing by avoiding public spaces and crowds now, wearing a mask in public to keep nose and mouth covered, and washing hands frequently especially before eating and after using the bathroom. Return to clinic if you develop any symtpoms of concern to be rescreened or go to the emergency room if you are having concerning symptoms for COVID-19. 01/06/2025 Aneurysm of unspecified site (ICD-10 - I72.9) reviewed MRi. Discussed with endovascular neuro at [facility] andid if it is outside or proximal to pophthalmic atrery lowrois; if distal to then intradural and riskjof SA in [facility]. he wnats to see anmy and the films-consult entered 01/06/2025 Encounter for screening for COVID-19 (ICD-10 - Z11.52) Covid screening is negative. Discussed in detail with patient how to practice social distancing by avoiding public spaces and crowds now, wearing a mask in public to keep nose and mouth covered, and washing hands frequently especially before eating and after using the bathroom. Return to clinic if you develop any symtpoms of concern to be rescreened or go to the emergency room if you are having concerning symptoms for COVID-19. 02/10/2025 Type 2 diabetes mellitus without complications (ICD-10 - E11.9) 02/26/2025 Major depressive disorder, recurrent, moderate (ICD-10 - F33.1) Reviewed hx of psychiatric illness, treatment received and medication trials with client. Discussed current medications as to indications, actions and side effects. Reviewed risks benefits of treatment versus non treatment. Medication education provided. Patient given opportunity to ask questions. Patient gives informed consent to proceed with prescribed treatment. 1. Mass BOX BLANK MACHINE FEEDER reviewed: see Exam 2. Medications: declines at this time 3. Psychotherapy: has appt with José RICCI at [facility]. 4. Labs/Procedures: defer to Dr. laguna her PCP 5. Exercise/Nutrition: sleep, regular exercise and nutrition all have a direct impact on our health and well-being. Keeping them in balance is especially important when we face stressful times in our lives. Eat balanced meals, get 6-8 hours of sleep a night, daily walking as able. 6. Understands plan and verbalizes agreement, allowed time for clarifying questions. Can be seen in future as needed. 03/05/2025 Plantar fascial fibromatosis (ICD-10 - M72.2) Reveiwed padding shoe bottom first. L 03/05/2025 Encounter for screening for COVID-19 (ICD-10 - Z11.52) Covid screening is negative. Discussed in detail with patient how to practice social distancing by avoiding public spaces and crowds now, wearing a mask in public to keep nose and mouth covered, and washing hands frequently especially before eating and after using the bathroom. Return to clinic if you develop any symtpoms of concern to be rescreened or go to the emergency room if you are having concerning symptoms for COVID-19. 03/05/2025 Major depressive disorder, recurrent, moderate (ICD-10 - F33.1) Declines need for psychiatric medications but seeking continued therapy. Appt scheduled for RADHAMES Diamond, for continued tehrapy-03/31/25 at [facility] site. Discussed client's coping mechanisms and strengths. Discussed value of engagement in resource center, shared information/sign up for tomorrow's resource fair at [facility] site. Clt given [facility] and crisis contact. Clt understands and agrees with plan. 04/09/2025 Delusional disorders (ICD-10 - F22) Reviewed hx of psychiatric illness, treatment received and medication trials with client. Discussed current medications as to indications, actions and side effects. Reviewed risks benefits of treatment versus non treatment. Medication education provided. Patient given opportunity to ask questions. Patient gives informed consent to proceed with prescribed treatment. 1. Mass BOX BLANK MACHINE FEEDER reviewed: see Exam 2. Medications: willontinue Olanzapine and Lorazepam 3. Psychotherapy: can f/u with José RICCI at [facility]. 4. Labs/Procedures: no new labs willobtain labs from hospital for review. 5. Exercise/Nutrition: sleep, regular exercise and nutrition all have a direct impact on our health and well-being. Keeping them in balance is especially important when we face stressful times in our lives. Eat balanced meals, get 6-8 hours of sleep a night, daily walking as able. 6. Understands plan and verbalizes agreement, allowed time for clarifying questions. S/E of Antipsychotic Medication Olanzapine reviewed with client and may include but are not limited to: weight gain and metabolic syndrome, risk of EPS, sedation/dizziness, elevated prolactin, anticholinergic s/e, uncommon risk of TD and rare risk of NMS. Will require regular monitoring of wt, BP, Hgb A1C, lipids and AIMS exam. S/S of EPS reviewed with client and client consents to trial of antipsychotic medication. Extrapyramidal symptoms (EPS) include akathisia, parkinsonism, and dystonia. While all antipsychotics can cause EPS, they tend to be more common in first-generation antipsychotics (FGAs) than second-generation antipsychotics. 1.Akathisia : Akathisia is the most common form of EPS. It usually presents as motor restlessness with a compelling urge to move or an inability to sit still. 2.Parkinsonism: Symptoms of secondary parkinsonism include masked facies, cogwheel rigidity, tremor, and bradykinesia. 3.Dystonia: Dystonia is an involuntary contraction of major muscle groups that is highly disturbing to the patient. Some types of dystonia, for example laryngospasm, may be life threatening. Antipsychotic-induc ed dystonia is usually rapid in onset and is characterized by torticollis, retrocollis, oculogyric crisis, and opisthotonos. Risk factors for dystonia include young age, male sex, use of cocaine, and a history of acute dystonic reaction. 4. Tardive dyskinesia : Tardive dyskinesia (TD) is a syndrome consisting of characteristic involuntary movements occurring most often after chronic treatment with antipsychotic medications or another dopamine receptor blocking agent. TD syndromes are more common after sustained exposure to antipsychotic medications; however, they may appear as early as one to six months after initiation of these agents. TD may initially worsen or reappear after lowering or discontinuing medication. 04/14/2025 Type 2 diabetes mellitus with diabetic neuropathy, unspecified (ICD-10 - E11.40) Dm control realy good and neuropathic sx improved. Support-no change in meds. haile Morfin restarted next 04/14/2025 Encounter for screening for COVID-19 (ICD-10 - Z11.52) Covid screening is negative. Discussed in detail with patient how to practice social distancing by avoiding public spaces and crowds now, wearing a mask in public to keep nose and mouth covered, and washing hands frequently especially before eating and after using the bathroom. Return to clinic if you develop any symtpoms of concern to be rescreened or go to the emergency room if you are having concerning symptoms for COVID-19. 04/16/2025 Delusional disorders (ICD-10 - F22) Discussion surrounding client's recent hospitalization and med compliance. Discussed need for continuity of care and compliance with appts with PMHNP, 04/30/25 next appt. Discussed client's muslim clarity since her hospitalization and her processing of this information with others. Clt states she has a f/u mtg today to discuss housing through [facility] today. WIll reach out to [facility] team if letters of support needed. 04/30/2025 Delusional disorders (ICD-10 - F22) Reviewed hx of psychiatric illness, treatment received and medication trials with client. Discussed current medications as to indications, actions and side effects. Reviewed risks benefits of treatment versus non treatment. Medication education provided. Patient given opportunity to ask questions. Pat 1. Mass BOX BLANK MACHINE FEEDER reviewed: see Exam 2. Medications: stopped Olanzapine on wn and states she is feeling better off the medication. 3. Psychotherapy: has f/u with José RICCI at [facility]. 4. Labs/Procedures: no new labs 5. Exercise/Nutrition: sleep, regular exercise and nutrition all have a direct impact on our health and well-being. Keeping them in balance is especially important when we face stressful times in our lives. Eat balanced meals, get 6-8 hours of sleep a night, daily walking as able. 6. Understands plan and verbalizes agreement, allowed time for clarifying questions. Client given information about peer to peer support group through [employer] [place] for people who hear voices and have unusual experiences. There is a support group at [address] [place] [address] in [place] which is near her new apartment. 11/03/2024 Type 2 diabetes mellitus without complications (ICD-10 - E11.9) 06/26/2024 Sheltered homelessness (ICD-10 - Z59.01) Still hopoing to get out of [place] at some point in time 08/07/2024 Type 2 diabetes mellitus without complications (ICD-10 - E11.9) Control is not bad at all but cahngung GLP-1 for both slightly better glycemiuc cointrol and for weight. Doing Ozempuc PA now 09/30/2024 Chronic obstructive pulmonary disease, unspecified (ICD-10 - J44.9) Revnewed bronchodilator and stipulated Ventolin 11/25/2024 Encounter for other screening for malignant neoplasm of breast (ICD-10 - Z12.39) adriane ordered 01/06/2025 Type 2 diabetes mellitus without complications (ICD-10 - E11.9) Imrpived but not at [facility]. Want to move her to [facility]. need to submit PA 02/10/2025 Morbid (severe) obesity due to excess calories (ICD-10 - E66.01) Discussed double dose of GLP1 with provider, reports main concern is GI distress minimal chance of low blood sugar. Discussed with pt in detail to no longer take any other GLP1 except the Mounjaro. Pt agrees and understands plan. Pt is down 1 lb from last weigh in. 02/26/2025 Post-traumatic stress disorder, unspecified (ICD-10 - F43.10) Appt José Gonzales [facility] 03/05/25. 03/05/2025 Type 2 diabetes mellitus with diabetic neuropathy, unspecified (ICD-10 - E11.40) Looks like glucose improving. She wnats to atsy on cuurrent Mounjaro and might incerase later dependingon weihgt and lucose 03/05/2025 Post-traumatic stress disorder, unspecified (ICD-10 - F43.10) Given therapy appt at [facility] location, 03/31/25. Declines need for psychiatric medications. Discussed identification of and avoidance of triggers. Utilize strength based skills and resources at her disposal-journaling , mindfulness techniques. Clt given [facility] and crisis contact information. Clt understands and agrees with plan. 04/09/2025 Post-traumatic stress disorder, unspecified (ICD-10 - F43.10) Encouraged to discuss with therapist. 04/14/2025 Chronic obstructive pulmonary disease, unspecified (ICD-10 - J44.9) Seems clinically stable and working on her smoing 04/16/2025 Major depressive disorder, recurrent, moderate (ICD-10 - F33.1) Follow up appt scheduled with LUCIAN Walker, 04/30/25. Appt scheduled for Saulo Gonzales [facility], 05/14/25 for continued tehrapy-at [facility] site. Discussed client's coping mechanisms and strengths. Clt given [facility] and crisis contact. Clt understands and agrees with plan. 04/30/2025 Post-traumatic stress disorder, unspecified (ICD-10 - F43.10) Encouraged to discuss with therapist. 06/26/2024 Tobacco use (ICD-10 - Z72.0) She is not ready to stop-wants to work on weight first but I advised her that 2024 will be agood year to stop 08/07/2024 Tobacco use (ICD-10 - Z72.0) see above 09/30/2024 Nicotine dependence, cigarettes, uncomplicated (ICD-10 - F17.210) She is improvign aot. prefers to stayon varenicilne for now 11/25/2024 Body mass index [BMI] 40.0-44.9, adult (ICD-10 - Z68.41) 01/06/2025 Morbid (severe) obesity due to excess calories (ICD-10 - E66.01) not changing. tirzepatide may help. i went over diet again. She is trying 02/26/2025 Anxiety disorder, unspecified (ICD-10 - F41.9) Using coping skills. Aware gabapentin may also help lower anxiety. 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 Not ready for or needing meds but explained dx 03/05/2025 Encounter for screening for COVID-19 (ICD-10 - Z11.52) Covid screening is negative. Discussed in detail with patient how to practice social distancing by avoiding public spaces and crowds now, wearing a mask in public to keep nose and mouth covered, and washing hands frequently especially before eating and after using the bathroom. Return to clinic if you develop any symtpoms of concern to be rescreened or go to the emergency room if you are having concerning symptoms for COVID-19. 04/09/2025 Anxiety disorder, unspecified (ICD-10 - F41.9) Continue low dose Lorazepam to target severe anxiety. Note dose decreased to BID at pt's request. Common side effects include but are not limited to: Somnolence, dizziness, weakness, ataxia Serious but rare side effects include but are not limited to: anterograde amnesia, increased fall risk, paradoxical reaction (irritability, agitation), respiratory depression ( avoid in pts with sleep apnea or on opioids) Gradual taper recommended when coming off medication used for prolonged treatment and on high dose. Tolerance to sedative effect may develop in 2-4 weeks, benzos affect sleep architecture, terminal computer operator use is discouraged. Lorazepam does not have a long half life or active metabolites that could accumulate, and poses no [id number] drug interaction risk. 04/14/2025 Sheltered homelessness (ICD-10 - Z59.01) 04/16/2025 Post-traumatic stress disorder, unspecified (ICD-10 - F43.10) Given therapy appt at [facility] location, 05/14/25 and reminded of psych med f/u with LUCIAN Ayala, 04/30/25. Discussed identification of and avoidance of triggers. Utilize strength based skills and resources at her disposal-journaling , mindfulness techniques. Clt given [facility] and crisis contact information. Clt understands and agrees with plan. 04/30/2025 Anxiety disorder, unspecified (ICD-10 - F41.9) Continue low dose Lorazepam as needed to target severe anxiety. Lorazepam common side effects include but are not limited to: Somnolence, dizziness, weakness, ataxia Serious but rare side effects include but are not limited to: anterograde amnesia, increased fall risk, paradoxical reaction (irritability, agitation), respiratory depression ( avoid in pts with sleep apnea or on opioids) Gradual taper recommended when coming off medication used for prolonged treatment and on high dose. Tolerance to sedative effect may develop in 2-4 weeks, benzos affect sleep architecture, terminal computer operator use is discouraged. Lorazepam does not have a long half life or active metabolites that could accumulate, and poses no [id number] drug interaction risk. 06/26/2024 Type 2 diabetes mellitus without complications (ICD-10 - E11.9) See data-gettign close ot goal. Increas eTruilicity to 1.5 mg 08/07/2024 Obstructive sleep apnea (adult) (pediatric) (ICD-10 - G47.33) Improved sleep anbd datime alertness on 8 cm CPAP 09/30/2024 Sheltered homelessness (ICD-10 - Z59.01) New long term working out but too much food 11/25/2024 Morbid (severe) obesity due to excess calories (ICD-10 - E66.01) No change in weihgt. Not sure Ozempic will work but increase to 2 mg. if not sucess then we go to [facility] 01/06/2025 Sheltered homelessness (ICD-10 - Z59.01) Hopes to be housed soon! 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 She is able to communicate with relatives, finds comforting and not interfering with daily life. 03/05/2025 Tobacco use (ICD-10 - Z72.0) MAking progress 04/09/2025 Encounter for screening for COVID-19 (ICD-10 - Z11.52) Covid screening is negative. 04/14/2025 Tobacco use (ICD-10 - Z72.0) as noted 04/16/2025 Encounter for screening for COVID-19 (ICD-10 - Z11.52) Covid screening is negative. Discussed in detail with patient how to practice social distancing by avoiding public spaces and crowds now, wearing a mask in public to keep nose and mouth covered, and washing hands frequently especially before eating and after using the bathroom. Return to clinic if you develop any symtpoms of concern to be rescreened or go to the emergency room if you are having concerning symptoms for COVID-19. 04/30/2025 Encounter for screening for COVID-19 (ICD-10 - Z11.52) Covid screening is negative. 06/26/2024 Body mass index [BMI] 40.0-44.9, adult (ICD-10 - Z68.41) Interfres with D, control! 08/07/2024 Morbid (severe) obesity due to excess calories (ICD-10 - E66.01) really not much cahnge. NExt step Ozempic and if needed then [facility] - will see what hapens next few months 09/30/2024 Anxiety disorder, unspecified (ICD-10 - F41.9) PHQ=6; really acombo anxiety and depression. On treatment and improved 11/25/2024 Family history of stroke (ICD-10 - Z82.3) FH AUTO CLUTCH REBUILDER Anuerysm in mm and aunt. Borderline for screening but she has real anxiety about this and agyle order MRA 02/26/2025 Type 2 diabetes mellitus without complications (ICD-10 - E11.9) 03/05/2025 Sheltered homelessness (ICD-10 - Z59.01) stijackie hopes to get out of [place] and own home 04/14/2025 Post-traumatic stress disorder, unspecified (ICD-10 - F43.10) 06/26/2024 Morbid (severe) obesity due to excess calories (ICD-10 - E66.01) No change-he rmajor goalis to lose but quality offood an isue. May need to go to Ozempic at some time 08/07/2024 Body mass index [BMI] 40.0-44.9, adult (ICD-10 - Z68.41) 09/30/2024 Morbid (severe) obesity due to excess calories (ICD-10 - E66.01) this wilbne a abttle. Hope she canm imrpove food cointent. Also more Ozempic 11/25/2024 Nicotine dependence, cigarettes, uncomplicated (ICD-10 - F17.210) low level-working on it 02/26/2025 Morbid (severe) obesity due to excess calories (ICD-10 - E66.01) 03/05/2025 Body mass index [BMI] 40.0-44.9, adult (ICD-10 - Z68.41) 04/14/2025 Type 2 diabetes mellitus without complications (ICD-10 - E11.9) see above 06/26/2024 Anxiety disorder, unspecified (ICD-10 - F41.9) I think this has a lot to do woth her chest pain issues 09/30/2024 Body mass index [BMI] 40.0-44.9, adult (ICD-10 - Z68.41) 11/25/2024 Obstructive sleep apnea (adult) (pediatric) (ICD-10 - G47.33) USing CPAp with success 02/26/2025 Nicotine dependence, cigarettes, uncomplicated (ICD-10 - F17.210) 03/05/2025 Morbid (severe) obesity due to excess calories (ICD-10 - E66.01) see above. 04/14/2025 Obstructive sleep apnea (adult) (pediatric) (ICD-10 - G47.33) Now back on CPAP 06/26/2024 Obstructive sleep apnea (adult) (pediatric) (ICD-10 - G47.33) Using her CPAP and benefits form it 09/30/2024 Lumbago with sciatica, unspecified side (ICD-10 - M54.40) Woirkign with PS&S right now 02/26/2025 Cannabis dependence, uncomplicated (ICD-10 - F12.20) per client smoking and using edibles to control pain and anxiety 04/14/2025 Family history of stroke (ICD-10 - Z82.3) FH anuerysm. MRA normal. reviewed with pt 02/26/2025 Encounter for screening for COVID-19 (ICD-10 - Z11.52) Covid screening is negative. Discussed in detail with patient how to practice social distancing by avoiding public spaces and crowds now, wearing a mask in public to keep nose and mouth covered, and washing hands frequently especially before eating and after using the bathroom. Return to clinic if you develop any symtpoms of concern to be rescreened or go to the emergency room if you are having concerning symptoms for COVID-19. 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 Aware if client needs more info, office visit notes for Social Security will need release/request sent from [employer]. 03/05/2025 Other 03/05/2025 Other 04/09/2025 Other 04/14/2025 Other 04/30/2025 Other Plan Of Treatment Pending Test Test Name Order Date Blood Sugar/finger stick 03/06/2024 Pulmonary Function Test 04/15/2024 Denise Screening Digital 11/25/2024 ECHO EXAM OF HEART 04/15/2024 Next Appt Details Provider Name:Anule Laguna, 05/21/2025 03:30:00 PM, [address] [place], [place], [phone], Provider Name:Colette flores, 05/26/2025 01:00:00 PM, [address] [place], [place], [phone], Provider Name:Severiano Dwyer, 06/04/2025 11:00:00 AM, [address] [facility], [place], [place], [id number], Insurance Providers Payer Name Payer Address Payer Phone Subscriber Number Group Number Insured Name Patient Relationship to Insured Coverage Start Date Coverage End Date [place] C3 [address] [place], [place] [id number] CaboolKarol das Self - patient is the insured 3 Medical (General) History Medical History History ICD Code high cholesterol sciatica asthma post traumatic stress disorder anxiety depression, delusional disorder Overweight E66.3 Cannabis use, unspecified, uncomplicated F12.90 Surgical History Surgery Date(Month/Year) Tympanostomy x 2 Hospitalization History Reason Date(Month/Year) Psych admission - [facility] 03/2025 Psych admission - [facility] [place], dx delusional d/o prescribed risperidone 03/2022 Psych admission - [place] [id number]
[2025-05-19 16:40] LABS: Cannabinoid Screen Urine POSITIVE (Not Detect)
[2025-05-19 18:42] VITALS: BMI 38.3
--- NOTE | 2025-05-19 19:00 | PC.ADMIT ---
Karol is a 39 year old female who was admitted to from the POD at 1742 with admitting dx of psychosis.? She lives in [facility] housing and when she was checked on she was found to be delusional and had reported she had not taken medications for 2 weeks. Karol has hx of DM2, obesity, and RISHI. Upon arrival changeover completed and skin/safety check unremarkable. She was noted to have a persistent? smile? and appeared internally preoccupied, raising hands in air frequently, making prayer-like motions with her hands and oftentimes closing eyes. She reported that God told her to come to [facility] and she is doing what God tells her to do. She also mentioned that God told her to stop taking her medications. She signed a CV with Brenda Manuel, is placed on 15?s during day and 5?s at night while on CPAP. She has POC ordered BID and is on Metformin. She had latency in responses and became overwhelmed with questions at one point but was able to resume shortly after.Pt signed a CV with the provider and cooperated in admission assessment. She denies SI/HI/AVH and states ?I?m fine? when asked to rate depression and anxiety. Menu selection made and shown to room.?
[2025-05-19 20:00] VITALS: BP 122/75; PULSE 83; RESP 16; TEMP 36.3; O2SAT 98
[2025-05-19 21:27] LABS: Glucose, Whole Blood 209 mg/dL (60-115)
[2025-05-20 08:04] LABS: Glucose, Whole Blood 90 mg/dL (60-115)
[2025-05-20 08:25] VITALS: BP 137/81; PULSE 80; RESP 20; TEMP 37; O2SAT 97
--- NOTE | 2025-05-20 08:36 | P.CONHOSP_ITS ---
History of Present Illness Data of Consult Service Date: 05/20/25 Primary Care Provider: Unknown Physician HPI Reason for consult: Medical consult 39-year-old female with type 2 diabetes, depression, complex posttraumatic stress disorder, delusional disorder, anxiety who was seen by [facility] from [facility] and determined that she needs inpatient level of care due to have delusions and medication adherence. Review of her labs reveals a mild leukocytosis, no anemia, no electrolyte imbalances. Mild elevation in AST and ALT. On exam she denies any shortness of breath chest pain abdominal pain or any pain. She denies any medical concerns Review of Systems 2 Review of Systems: Denies any shortness of breath, chest pain, palpitations, dizziness, lightheadedness, headaches, dysuria, abdominal pain or discomfort, nausea, vomiting or diarrhea. Denies Chills, body aches, muscle aches, fatigue or weight loss. PMFSH Social History Household Members: None Housing: Apartment Do you presently have visiting nurse or other home services: Yes Patient Tobacco Use Status: Former Tobacco user Tobacco use type: Cigarette Smoked in Last 30 Days: No e-Cigarette/Vaping Use: Never Used Patient Interested in Nicotine Replacement: No Patient Given Instructions on How to Stop Smoking: No Second Hand Smoke Exposure: No Use of substances other than those prescribed or required for medical reasons: Yes Substance Use Type: Marijuana Substance Use Frequency: Daily Currently Displaying Signs/Symptoms of Drug Intoxication Withdrawal: No Spiritual Healthcare Practices: prays to God Worship Healthcare Practices: denies Cultural Healthcare Practices: denies Advance Directives: No Advance Directives Information Provided: No Do you have thoughts of harming others: None Do you have a plan to hurt others: No Plan Recently lost weight without trying: Unsure How much weight loss: Unsure Eating poorly because of decreased appetite: No Nutrition screen score: 4 Nutrition Risks: No Nutritional Risk Patient : No : No Poor oral hygiene: No Meds Allergies Allergy/AdvReac Type Severity Reaction Status Date / Time Seasonal Allergies Allergy Sneezing Verified 05/19/25 13:21 Active Medications: Current Medications Acetaminophen (Acetaminophen 325 Mg Tablet) 650 mg PO Q6H PRN PRN Reason: Headache/Pain, Scale 1-10 Al Hydroxide/Mg Hydroxide (Magnesium Hydrox/Alum Hydrox 30 Ml Oral.Susp) 30 ml PO Q6H PRN PRN Reason: Heartburn/Nausea Cyclobenzaprine HCl (Cyclobenzaprine Hcl 5 Mg Tablet) 5 mg PO DAILY [facility] Last Admin: 05/20/25 08:28 Dose: Not Given Dextrose (Dextrose 50 % 25 Gm/50 Ml Syringe) 25 gm IVPUSH Q15M PRN; Protocol PRN Reason: per Hypoglycemia Standing Ord. Gabapentin (Gabapentin 400 Mg Capsule) 800 mg PO BID [facility] Last Admin: 05/20/25 08:28 Dose: 800 mg Glucose (Glucose Gel 15 Gm Gel..Gram.) 15 gm PO Q15M PRN; Protocol PRN Reason: per Hypoglycemia Standing Ord. Hydroxyzine HCl (Hydroxyzine Hcl 25 Mg Tablet) 25 mg PO Q6H PRN PRN Reason: mild anxiety Insulin Human Lispro (Insulin Lispro 100 Unit/Ml 3 Ml Vial) 0 unit SUBCUT QIDACHS [facility]; Protocol Last Admin: 05/20/25 08:34 Dose: Not Given Loratadine (Loratadine 10 Mg Tablet) 10 mg PO DAILY [facility] Last Admin: 05/20/25 08:27 Dose: 10 mg Lorazepam (Lorazepam 1 Mg Tablet) 1 mg PO BID PRN PRN Reason: severe anxiety Magnesium Hydroxide (Milk Of Magnesia 30 Ml Oral.Susp) 30 ml PO DAILY PRN PRN Reason: Constipation Metformin HCl (Metformin Hcl Er 750 Mg Tab.Er.24h) 750 mg PO BID [facility] Last Admin: 05/20/25 08:27 Dose: 750 mg Nicotine Polacrilex (Nicotine Polacrilex 2 Mg Gum) 4 mg BUCCAL Q2H PRN PRN Reason: Nicotine Cravings Olanzapine (Olanzapine 5 Mg Tablet) 5 mg PO Q4H PRN PRN Reason: agitation, psychosis Omeprazole (Omeprazole 40 Mg Capsule.Dr) 40 mg PO DAILY@0630 [facility] Last Admin: 05/20/25 06:29 Dose: 40 mg Trazodone HCl (Trazodone Hcl 50 Mg Tablet) 50 mg PO BEDTIME MRX1 PRN PRN Reason: Insomnia Home Medications ?Medication ?Instructions ?Recorded ?Confirmed ?Last Taken ?Type cetirizine 10 mg tablet 10 mg PO DAILY 05/19/25 09/05/04/25 History cyclobenzaprine 5 mg tablet 5 mg PO DAILY 05/19/2505/04/25 History gabapentin 800 mg tablet 800 mg PO BID 05/19/2505/1905/04/25 History metformin 750 mg tablet,extended 750 mg PO BID 5 05/19/25 05/04/25 History release 24 hr omeprazole 40 mg capsule,delayed 40 mg PO DAILY 05/19/25 05/04/25 History release Physical Exam 2 Vital Signs and Narrative: Vital Signs: Last Vital Signs Temp 98.6 F 05/20/25 08:25 Pulse 80 05/20/25 08:25 Resp 20 05/20/25 08:25 BP 137/81 05/20/25 08:25 Pulse Ox 97 05/20/25 08:25 O2 Del Method Room Air 05/20/25 08:25 BMI result Body Mass Index 38.3 CONST: Alert and oriented, in NAD. Well nourished. Friendly HEENT: Normocephalic, atraumatic, MMM, Eyes clear, Neck supple RESP: Lungs clear, RRR even and regular HEART:,RRR, S1, S2. No murmur, no edema GI:Abdomen Soft NT, ND. + BS times four :Deferred SKIN: Warm dry and intact, no visible lesions or rashes NEURO:CN II-XII Intact bilaterally, Sensation intact. Speech clear PSYCH: Delusional, reports that she is the wizard of Oz and that is why she does not wear any shoes Results Labs 05/19/25 14:59 05/19/25 14:59 Labs: Laboratory Results - last 24 hr 05/19/25 05/19/25 05/19/25 14:59 16:23 20:32 MCV 89.6 MCH 28.6 MCHC 31.9 RDW 13.6 Plt Count 231 MPV 9.2 L Immature Gran % (Auto) 0.3 Neut % (Auto) 56.2 Lymph % (Auto) 36.0 [place] % (Auto) 4.8 Eos % (Auto) 2.4 Baso % (Auto) 0.3 Lymph # (Auto) 4.0 [place] # (Auto) 0.5 Eos # (Auto) 0.3 Baso # (Auto) 0.0 Abs Immat Gran (auto) 0.03 Absolute Neuts (auto) 6.3 Absolute Nucleated RBC 0.000 Nucleated RBC % (auto) 0.0 Anion Gap 14 Estim Creat Clear Calc 108.8 Estimated GFR > 60 POC Glucose 209 H Random Glucose 73 Calcium 9.8 Total Bilirubin 0.6 AST 57 H ALT 95 H Alkaline Phosphatase 136 H Total Protein 8.4 H Albumin 5.1 H Urine Opiates Screen Not Detected Ur Buprenorphine Scrn Not Detected Ur Oxycodone Screen Not Detected Urine Methadone Screen Not Detected Urine Fentanyl Screen Not Detected Ur Barbiturates Screen Not Detected Ur Phencyclidine Scrn Not Detected Ur Amphetamines Screen Not Detected U Benzodiazepines Scrn Not Detected Urine Cocaine Screen Not Detected U Marijuana (THC) Screen POSITIVE H Ethyl Alcohol < 10 05/20/25 07:52 MCV MCH MCHC RDW Plt Count MPV Immature Gran % (Auto) Neut % (Auto) Lymph % (Auto) [place] % (Auto) Eos % (Auto) Baso % (Auto) Lymph # (Auto) [place] # (Auto) Eos # (Auto) Baso # (Auto) Abs Immat Gran (auto) Absolute Neuts (auto) Absolute Nucleated RBC Nucleated RBC % (auto) Anion Gap Estim Creat Clear Calc Estimated GFR POC Glucose 90 Random Glucose Calcium Total Bilirubin AST ALT Alkaline Phosphatase Total Protein Albumin Urine Opiates Screen Ur Buprenorphine Scrn Ur Oxycodone Screen Urine Methadone Screen Urine Fentanyl Screen Ur Barbiturates Screen Ur Phencyclidine Scrn Ur Amphetamines Screen U Benzodiazepines Scrn Urine Cocaine Screen U Marijuana (THC) Screen Ethyl Alcohol Assessment and Plan (1) Type 2 diabetes mellitus: Status: Acute Plan 39-year-old female with a past medical history of type 2 diabetes, hyperlipidemia, asthma, GERD, anxiety/depression/post traumatic stress disorder, delusional disorder seen by mobile crisis unit and felt to need inpatient level of care due to delusions and medication compliance. Complex posttraumatic stress disorder/delusional disorder/depression/anxiety Treatment per psychiatric team Type 2 diabetes Diabetes well controlled A1c 6.3 Continue metformin b.i.d. Hyperlipidemia Continue Lipitor Asthma Continue Spiriva Respimat and PRN albuterol Sleep apnea Unclear if she is on CPAP. GERD Continue Prilosec Thank you for allowing me to participate in the care of this patient. Will follow as needed, please notify medical provider with any changes in condition or concerns.
[2025-05-20 09:07] LABS: Hemoglobin A1C 161.1466 umol/L; Total Hemoglobin (HGBA1C) 3535.9701 umol/L
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
[2025-05-20 10:05] LABS: HBS Num1 52.17 mIU/mL (0-7.99); HBc Num1 0.06 S/CO (0.00-0.79); HBsAGNum1 0.33 S/CO (0.00-0.99); Hepatitis A Antibody IgM 0.16 Index (0-0.79); Hepatitis B Surface Antigen Negative (Negative); ~HepC Num1 0.06 S/CO (0.00-0.79); ~Hepatitis A Antibody IgM Nonreactive (Nonreactive); ~Hepatitis B Surface Antibody REACTIVE (Nonreactive); ~Hepatitis C Antibody Nonreactive (Nonreactive)
[2025-05-20 10:37] LABS: Folate 14.9 ng/mL (> or = 4.0); Vitamin B12 520 pg/mL (200-900)
[2025-05-20 14:44] LABS: Cholesterol 160 mg/dL (<200); HDL Cholesterol 42 mg/dL (>40); Lipase 57 U/L (8-78); Magnesium 2.1 mg/dL (1.6-2.6); Triglycerides 159 mg/dL (<150)
[2025-05-20 14:46] LABS: Amylase 66 U/L (28-100); Free T4 (Free Thyroxine) 1.13 ng/dL (0.71-1.85); Thyroid Stimulating Hormone 0.38 uIU/mL (0.32-4.0)
[2025-05-20 16:40] LABS: Appearance Urine Cloudy; Glucose Urine UA Negative (Negative); PH 5.0 (5.0-9.0); Specific Gravity - Urine 1.020 (1.005-1.025)
[2025-05-20 16:54] LABS: UPreg QC Valid YES
[2025-05-20 17:19] LABS: Glucose, Whole Blood 111 mg/dL (60-115)
[2025-05-20 20:00] VITALS: BP 126/74; PULSE 88; RESP 18; TEMP 36.9; O2SAT 100
[2025-05-21 07:00] VITALS: BMI 39.1
[2025-05-21 08:00] VITALS: BP 115/70; PULSE 83; RESP 16; TEMP 36.6; O2SAT 99
[2025-05-21 08:13] LABS: White Blood Count 11.1 X10*3/uL (4.8-10.8)
[2025-05-21 08:14] LABS: Glucose, Whole Blood 215 mg/dL (60-115)
[2025-05-21 08:26] LABS: Alanine Aminotransferase 87 U/L (0-31); Albumin Level 4.6 g/dL (3.5-5.0); Alkaline Phosphatase 147 U/L (39-117); Aspartate Amino Transferase 51 U/L (5-31); Total Protein 7.5 g/dL (6.5-8.0)
[2025-05-21] MEDS: Tiotropium Bromide 2.5 mcg 1 PUFF/2.5 MCG MIST.INHAL 2 PUFF INHALE (08:40)
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
[2025-05-21 20:00] VITALS: RESP 15
[2025-05-22 08:20] LABS: Glucose, Whole Blood 99 mg/dL (60-115)
[2025-05-22] MEDS: Tiotropium Bromide 2.5 mcg 1 PUFF/2.5 MCG MIST.INHAL 2 PUFF INHALE (08:50)
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
[2025-05-22 20:00] VITALS: BP 131/72; PULSE 98; RESP 16; TEMP 36.3; O2SAT 100
[2025-05-23 08:00] VITALS: BP 135/88; PULSE 79; RESP 18; TEMP 36.2; O2SAT 97
[2025-05-23] MEDS: OLANZapine 7.5 MG TABLET 15 MG PO ×2 (09:07→19:59)
[2025-05-23] MEDS: Tiotropium Bromide 2.5 mcg 1 PUFF/2.5 MCG MIST.INHAL 2 PUFF INHALE (09:11)
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
[2025-05-23 19:44] VITALS: BP 134/73; PULSE 90; TEMP 35.9; O2SAT 99
[2025-05-24 08:00] VITALS: BP 132/71; PULSE 91; RESP 19; TEMP 36.4; O2SAT 99
[2025-05-24] MEDS: OLANZapine 7.5 MG TABLET 15 MG PO ×2 (08:49→20:39)
[2025-05-24] MEDS: Tiotropium Bromide 2.5 mcg 1 PUFF/2.5 MCG MIST.INHAL 2 PUFF INHALE (08:52)
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
[2025-05-24 19:48] VITALS: BP 119/65; PULSE 90; TEMP 36.4; O2SAT 99
[2025-05-25 08:00] VITALS: BP 151/82; PULSE 93; RESP 20; TEMP 36.1; O2SAT 97
[2025-05-25] MEDS: OLANZapine 7.5 MG TABLET 15 MG PO ×2 (08:02→21:19)
[2025-05-25] MEDS: Tiotropium Bromide 2.5 mcg 1 PUFF/2.5 MCG MIST.INHAL 2 PUFF INHALE (08:06)
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
[2025-05-25 20:00] VITALS: BP 139/81; PULSE 91; RESP 18; TEMP 36.9; O2SAT 98
[2025-05-26 08:00] VITALS: BP 132/75; PULSE 88; RESP 20; TEMP 35.9; O2SAT 100
[2025-05-26] MEDS: OLANZapine 7.5 MG TABLET 15 MG PO ×2 (08:47→21:14)
[2025-05-26] MEDS: Tiotropium Bromide 2.5 mcg 1 PUFF/2.5 MCG MIST.INHAL 2 PUFF INHALE (08:49)
[2025-05-26 09:21] LABS: Creatinine Clr Calc Pharmacy 125.0; Estimated Glomerular Filt Rate > 60
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
[2025-05-26 20:00] VITALS: BP 131/82; PULSE 102; RESP 16; TEMP 36.5; O2SAT 98
[2025-05-27 08:45] VITALS: BP 137/77; PULSE 84; RESP 20; TEMP 36.3; O2SAT 99
[2025-05-27] MEDS: Tiotropium Bromide 2.5 mcg 1 PUFF/2.5 MCG MIST.INHAL 2 PUFF INHALE (08:49)
[2025-05-27] MEDS: OLANZapine 7.5 MG TABLET 15 MG PO ×2 (08:50→21:59)
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
[2025-05-27 20:00] VITALS: BP 115/66; PULSE 99; RESP 20; TEMP 37; O2SAT 98
[2025-05-27] MEDS: Milk of Magnesia 30 ML ORAL.SUSP PO (21:59)
[2025-05-28 08:32] VITALS: BP 101/62; PULSE 94; RESP 20; TEMP 36.6; O2SAT 97
[2025-05-28] MEDS: OLANZapine 7.5 MG TABLET 15 MG PO ×2 (08:35→21:00)
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
[2025-05-28 19:55] VITALS: BP 131/70; PULSE 98; RESP 18; TEMP 36.9; O2SAT 98
[2025-05-28] MEDS: Tiotropium Bromide 2.5 mcg 1 PUFF/2.5 MCG MIST.INHAL 2 PUFF INHALE (20:59)
[2025-05-29 08:16] VITALS: BP 121/78; PULSE 104; TEMP 36.9; O2SAT 98
[2025-05-29] MEDS: OLANZapine 7.5 MG TABLET 15 MG PO (08:44)
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
--- NOTE | 2025-05-29 11:54 | PC.RT ---
pt has been refusing cpap more than 3 days. therefore order will be dc'd per policy
[2025-05-29 19:57] VITALS: BP 128/60; PULSE 99; RESP 15; TEMP 37.1; O2SAT 97
[2025-05-30 08:00] VITALS: BP 130/63; PULSE 104; RESP 18; TEMP 36.8; O2SAT 96
[2025-05-30] MEDS: Tiotropium Bromide 2.5 mcg 1 PUFF/2.5 MCG MIST.INHAL 2 PUFF INHALE (09:13)
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
[2025-05-30 19:45] VITALS: BP 114/65; PULSE 108; RESP 15; TEMP 36.4; O2SAT 96
[2025-05-30] MEDS: Milk of Magnesia 30 ML ORAL.SUSP PO (20:45)
[2025-05-31 07:54] VITALS: BP 122/73; PULSE 99; RESP 18; TEMP 36.2; O2SAT 97
[2025-05-31] MEDS: Tiotropium Bromide 2.5 mcg 1 PUFF/2.5 MCG MIST.INHAL 2 PUFF INHALE (08:15)
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
[2025-05-31 20:00] VITALS: BP 118/60; PULSE 97; RESP 16; TEMP 36.6; O2SAT 100
[2025-06-01 07:54] VITALS: BP 136/83; PULSE 92; TEMP 2.2; TEMP 35.9; O2SAT 98
[2025-06-01] MEDS: Tiotropium Bromide 2.5 mcg 1 PUFF/2.5 MCG MIST.INHAL 2 PUFF INHALE (08:47)
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
[2025-06-01 16:06] LABS: Appearance Urine Clear; Glucose Urine UA 500 mg/dL (Negative); PH 5.0 (5.0-9.0); Specific Gravity - Urine 1.015 (1.005-1.025)
[2025-06-01 20:06] VITALS: BP 125/67; PULSE 99; RESP 16; TEMP 36.6; O2SAT 97
[2025-06-01] MEDS: Milk of Magnesia 30 ML ORAL.SUSP PO (21:23)
[2025-06-02 07:54] VITALS: BP 149/81; PULSE 97; TEMP 36.4; O2SAT 98
[2025-06-02] MEDS: Tiotropium Bromide 2.5 mcg 1 PUFF/2.5 MCG MIST.INHAL 2 PUFF INHALE (08:17)
[2025-06-02 09:06] LABS: Creatinine Clr Calc Pharmacy 136.7; Estimated Glomerular Filt Rate > 60
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
[2025-06-02 11:59] LABS: Glucose, Whole Blood 371 mg/dL (60-115)
--- NOTE | 2025-06-02 12:03 | PC.NURSE ---
New orders received to check POC QID. POC 371. Provider and hospitalist made aware. Awaiting orders.
--- NOTE | 2025-06-02 12:10 | HO.PM.IMPN ---
Subjective Subjective Date of Service: 06/02/25 Interval History: Asked by nursing to see patient for an elevated blood sugar 371. Nursing unable to verify whether or not patient has been snacking or drinking juice. Her recent A1c was 6.3 indicating her diabetes is well controlled. One time dose of lispro given. We will continue metformin 750 mg twice daily. Review of blood sugars indicate a 374 was isolated. On exam she feels well, denies any shortness of breath, dizziness lightheadedness or any other concerning symptoms. Review of Systems Denies any shortness of breath, chest pain, headaches, dysuria, abdominal pain or discomfort, nausea, vomiting or diarrhea. Physical Exam Exam: Exam: CONST: Alert and oriented, in NAD. Well nourished HEENT: Normocephalic, atraumatic, MMM RESP: Lungs clear, RRR even and regular HEART:,RRR, S1, S2. No edema GI:Abdomen Soft NT, ND. + BS times four :Deferred SKIN: Warm dry and intact, no visible lesions or rashes NEURO:CN II-XII Intact bilaterally, Sensation intact. Speech clear PSYCH: Normal affect Vital Signs: Vital Signs: Last Vital Signs Temp 97.5 F 06/02/25 07:54 Pulse 97 06/02/25 07:54 Resp 16 06/01/25 20:06 BP 149/81 H 06/02/25 07:54 Pulse Ox 98 06/02/25 07:54 O2 Del Method Room Air 06/02/25 07:54 BMI result Body Mass Index 39.1 Objective Data Active Medications Acetaminophen (Acetaminophen 325 Mg Tablet) 650 mg PO Q6H PRN PRN Reason: Headache/Pain, Scale 1-10 Al Hydroxide/Mg Hydroxide (Magnesium Hydrox/Alum Hydrox 30 Ml Oral.Susp) 30 ml PO Q6H PRN PRN Reason: Heartburn/Nausea Albuterol Sulfate (Albuterol Sulfate 90 Mcg 8 Gm Inhaler) 2 puff INHALE RQ6H PRN PRN Reason: Shortness of Breath/Wheezing Atorvastatin Calcium (Atorvastatin Calcium 10 Mg Tablet) 10 mg PO BEDTIME [facility] Last Admin: 06/01/25 21:11 Dose: 10 mg Documented By: NJOROGB Cyclobenzaprine HCl (Cyclobenzaprine Hcl 5 Mg Tablet) 5 mg PO DAILY [facility] Last Admin: 06/02/25 08:12 Dose: 5 mg Documented By: SCOUT Dextrose (Dextrose 50 % 25 Gm/50 Ml Syringe) 25 gm IVPUSH Q15M PRN; Protocol PRN Reason: per Hypoglycemia Standing Ord. Empagliflozin (Empagliflozin 10 Mg Tablet) 10 mg PO DAILY [facility] Gabapentin (Gabapentin 400 Mg Capsule) 800 mg PO BID [facility] Last Admin: 06/02/25 08:11 Dose: 800 mg Documented By: SCOUT Glucose (Glucose Gel 15 Gm Gel..Gram.) 15 gm PO Q15M PRN; Protocol PRN Reason: per Hypoglycemia Standing Ord. Hydroxyzine HCl (Hydroxyzine Hcl 25 Mg Tablet) 25 mg PO Q6H PRN PRN Reason: mild anxiety Insulin Human Lispro (Insulin Lispro 100 Unit/Ml 3 Ml Vial) 0 unit SUBCUT TIDAC [facility]; Protocol Loratadine (Loratadine 10 Mg Tablet) 10 mg PO DAILY [facility] Last Admin: 06/02/25 08:12 Dose: 10 mg Documented By: SCOUT Lorazepam (Lorazepam 1 Mg Tablet) 1 mg PO BID PRN PRN Reason: severe anxiety Last Admin: 05/28/25 21:00 Dose: 1 mg Documented By: ANTONIA Magnesium Hydroxide (Milk Of Magnesia 30 Ml Oral.Susp) 30 ml PO DAILY PRN PRN Reason: Constipation Last Admin: 06/01/25 21:23 Dose: 30 ml Documented By: ITALO Melatonin (Melatonin 3 Mg Tablet) 9 mg PO BEDTIME [facility] Last Admin: 06/01/25 21:11 Dose: 9 mg Documented By: ITALO Metformin HCl (Metformin Hcl 1,000 Mg Tablet) 1,000 mg PO BIDWM [facility] Nicotine Polacrilex (Nicotine Polacrilex 2 Mg Gum) 4 mg BUCCAL Q2H PRN PRN Reason: Nicotine Cravings Olanzapine (Olanzapine 5 Mg Tablet) 5 mg PO Q4H PRN PRN Reason: agitation, psychosis Olanzapine (Olanzapine 10 Mg Tablet) 10 mg PO BID [facility] Last Admin: 06/02/25 08:12 Dose: 10 mg Documented By: SCOUT Omeprazole (Omeprazole 40 Mg Capsule.) 40 mg PO DAILY@0630 [facility] Last Admin: 06/02/25 06:11 Dose: 40 mg Documented By: ITALO Paliperidone (Paliperidone Er 3 Mg Tab.Er.24) 3 mg PO DAILY [facility] Last Admin: 06/02/25 08:12 Dose: 3 mg Documented By: SCOUT Tiotropium [place] (Tiotropium [place] 2.5 Mcg 1 Puff/2.5 Mcg Mist.Inhal) 2 puff INHALE RDAILY [facility] Last Admin: 06/02/25 08:17 Dose: 2 puff Documented By: SCOUT Trazodone HCl (Trazodone Hcl 50 Mg Tablet) 50 mg PO BEDTIME MRX1 PRN PRN Reason: Insomnia Last Admin: 05/23/25 23:51 Dose: 50 mg Documented By: OKSANAC Labs 05/21/25 07:54 06/02/25 07:26 Labs: Laboratory Results - last 24 hr 06/01/25 06/02/25 06/02/25 15:55 07:26 11:56 Estim Creat Clear Calc 136.7 Estimated GFR > 60 POC Glucose 371 H* Urine Color Yellow Urine Appearance Clear Urine pH 5.0 Ur Specific [place] 1.015 Urine Protein Negative Urine Glucose (UA) 500 H Urine Ketones Negative Urine Blood Negative Urine Nitrite Negative Ur Leukocyte Esterase Negative Urine RBC 0-2 Urine WBC 0-5 Ur Squamous Epith Cells 0-2 Urine Bacteria None Seen Hyaline Casts 0-2 Assessment and Plan (1) Type 2 diabetes mellitus: Status: Acute Plan 39-year-old female with a past medical history of type 2 diabetes, hyperlipidemia, asthma, GERD, anxiety/depression/post traumatic stress disorder, delusional disorder seen by mobile crisis unit and felt to need inpatient level of care due to delusions and medication compliance. Complex posttraumatic stress disorder/delusional disorder/depression/anxiety Treatment per psychiatric team Type 2 diabetes Diabetes well controlled A1c 6.3 Continue metformin b.i.d. 1X house pf 5 Units Lispro for BS 371 Patient being discharged , will resume her home Mounjaro Hyperlipidemia Continue Lipitor Asthma Continue Spiriva Respimat and PRN albuterol Sleep apnea Unclear if she is on CPAP. GERD Continue Prilosec Thank you for allowing me to participate in the care of this patient. Will follow as needed, please notify medical provider with any changes in condition or concerns. Quality Stroke Does the patient have a stroke diagnosis?: No VTE Prior VTE?: No VTE Risk Level:: Medical - low VTE Device Contraindication: Treatment Not Indicated VTE Drug Contraindication: Treatment Not Indicated
[2025-06-02 17:04] LABS: Glucose, Whole Blood 373 mg/dL (60-115)
[2025-06-02 20:00] VITALS: BP 130/88; PULSE 100; RESP 16; TEMP 36.5; O2SAT 98
[2025-06-02 21:39] LABS: Glucose, Whole Blood 404 mg/dL (60-115)
[2025-06-03 03:50] LABS: Glucose, Whole Blood 197 mg/dL (60-115)
--- NOTE | 2025-06-03 03:58 | PC.NURSE ---
POC @ 2100 was 404, insulin 10 units given per sliding scale. On-call Provider informed. POC rechecked at 0330 reads 197.
[2025-06-03 07:59] LABS: Glucose, Whole Blood 182 mg/dL (60-115)
[2025-06-03 08:00] VITALS: BP 132/91; PULSE 86; TEMP 36.4; O2SAT 98
[2025-06-03] MEDS: Tiotropium Bromide 2.5 mcg 1 PUFF/2.5 MCG MIST.INHAL 2 PUFF INHALE (08:50)
--- NOTE | 2025-06-03 10:05 | HO.PSYCHPN ---
Subjective Subjective Date of Service: 06/03/25 Reason For Visit: Psychosis Subjective Notes: Conditional Voluntary Healthcare Proxy: No Guardianship: No Medical Problems Affecting Mental Status: No Interim History: Tolerated Invega Sustenna injection thus far. Reports she feels prepared to discharge. Clear, reading a book, able to discuss logically the plot and some of the meaning this has for her. Denies SI,HI, AH,VH. Reports feeling she can return to her new residence and make it this time. Appetite and sleep she reports are intact. POC qid with hyperglycemic readings. Pt believes this to be the case as she had to interrupt Mounjaro. Tolerating sliding scale. Medication Compliance: Yes Side effects from medications: No Attending Groups: Intermittent Review of Systems Acute medical concerns: No Review of Systems Review of Systems I feel good Mental Status Exam Mental Status Exam Patient Appearance: Appropriate Patient Orientation: Person, Place, Time and Situation Level of Consciousness: Alert Patient Behavior: Appropriate, Talkative, Cooperative and Good Eye Contact Mood Description: Calm Affect Description: Calm Patient Cognition Impaired: No Ability to Follow Directions: Good Speech Pattern: Spontaneous Speech Memory Description: Episodic Impaired Hallucinations: None Delusions: Not Present Perceptual Disturbances: Derealization Thought Process: Goal Oriented Thought Content: positive for Circumstantial, positive for Goal Oriented and positive for Suicidal Ideation (denies) Depressive Symptoms: Thoughts of /Suicide (denies) Judgement: Good Diagnostics Vital Signs (24Hr): Vital Signs - 24 hr 06/02/25 20:00 06/03/25 08:00 Temperature 97.7 F 97.5 F Pulse Rate 100 86 Respiratory Rate 16 Blood Pressure 130/88 132/91 H Pulse Oximetry 98 98 Oxygen Delivery Method Room Air Room Air BMI result Body Mass Index 39.1 Labs 05/21/25 07:54 06/02/25 07:26 Labs: Laboratory Results - last 48 hr 06/01/25 06/02/25 06/02/25 15:55 07:26 11:56 Creatinine 0.64 Estim Creat Clear Calc 136.7 Estimated GFR > 60 POC Glucose 371 H* Urine Color Yellow Urine Appearance Clear Urine pH 5.0 Ur Specific [place] 1.015 Urine Protein Negative Urine Glucose (UA) 500 H Urine Ketones Negative Urine Blood Negative Urine Nitrite Negative Ur Leukocyte Esterase Negative Urine RBC 0-2 Urine WBC 0-5 Ur Squamous Epith Cells 0-2 Urine Bacteria None Seen Hyaline Casts 0-2 06/02/25 06/02/25 06/03/25 17:00 21:33 03:46 Creatinine Estim Creat Clear Calc Estimated GFR POC Glucose 373 H* 404 H* 197 H Urine Color Urine Appearance Urine pH Ur Specific [place] Urine Protein Urine Glucose (UA) Urine Ketones Urine Blood Urine Nitrite Ur Leukocyte Esterase Urine RBC Urine WBC Ur Squamous Epith Cells Urine Bacteria Hyaline Casts 06/03/25 07:55 Creatinine Estim Creat Clear Calc Estimated GFR POC Glucose 182 H Urine Color Urine Appearance Urine pH Ur Specific [place] Urine Protein Urine Glucose (UA) Urine Ketones Urine Blood Urine Nitrite Ur Leukocyte Esterase Urine RBC Urine WBC Ur Squamous Epith Cells Urine Bacteria Hyaline Casts Medications Medications Current Medications Acetaminophen (Acetaminophen 325 Mg Tablet) 650 mg PO Q6H PRN PRN Reason: Headache/Pain, Scale 1-10 Al Hydroxide/Mg Hydroxide (Magnesium Hydrox/Alum Hydrox 30 Ml Oral.Susp) 30 ml PO Q6H PRN PRN Reason: Heartburn/Nausea Albuterol Sulfate (Albuterol Sulfate 90 Mcg 8 Gm Inhaler) 2 puff INHALE RQ6H PRN PRN Reason: Shortness of Breath/Wheezing Atorvastatin Calcium (Atorvastatin Calcium 10 Mg Tablet) 10 mg PO BEDTIME FOR[facility]LY [facility], [facility] Last Admin: 06/02/25 21:44 Dose: 10 mg Cyclobenzaprine HCl (Cyclobenzaprine Hcl 5 Mg Tablet) 5 mg PO DAILY [facility]LY [facility], [facility] Last Admin: 06/03/25 08:49 Dose: 5 mg Dextrose (Dextrose 50 % 25 Gm/50 Ml Syringe) 25 gm IVPUSH Q15M PRN; Protocol PRN Reason: per Hypoglycemia Standing Ord. Gabapentin (Gabapentin 400 Mg Capsule) 800 mg PO BID [facility], [facility] Last Admin: 06/03/25 08:49 Dose: 800 mg Glucose (Glucose Gel 15 Gm Gel..Gram.) 15 gm PO Q15M PRN; Protocol PRN Reason: per Hypoglycemia Standing Ord. Hydroxyzine HCl (Hydroxyzine Hcl 25 Mg Tablet) 25 mg PO Q6H PRN PRN Reason: mild anxiety Insulin Human Lispro (Insulin Lispro 100 Unit/Ml 3 Ml Vial) 0 unit SUBCUT QID [facility], [facility]; Protocol Last Admin: 06/03/25 08:19 Dose: 2 unit Loratadine (Loratadine 10 Mg Tablet) 10 mg PO DAILY [facility] Last Admin: 06/03/25 08:49 Dose: 10 mg Lorazepam (Lorazepam 1 Mg Tablet) 1 mg PO BID PRN PRN Reason: severe anxiety Last Admin: 05/28/25 21:00 Dose: 1 mg Magnesium Hydroxide (Milk Of Magnesia 30 Ml Oral.Susp) 30 ml PO DAILY PRN PRN Reason: Constipation Last Admin: 06/01/25 21:23 Dose: 30 ml Melatonin (Melatonin 3 Mg Tablet) 9 mg PO BEDTIME [facility] Last Admin: 06/02/25 21:43 Dose: 9 mg Metformin HCl (Metformin Hcl 500 Mg Tablet) 750 mg PO BIDWM [facility] Last Admin: 06/03/25 08:49 Dose: 750 mg Nicotine Polacrilex (Nicotine Polacrilex 2 Mg Gum) 4 mg BUCCAL Q2H PRN PRN Reason: Nicotine Cravings Olanzapine (Olanzapine 5 Mg Tablet) 5 mg PO Q4H PRN PRN Reason: agitation, psychosis Olanzapine (Olanzapine 5 Mg Tablet) 5 mg PO BID [facility] Last Admin: 06/03/25 08:49 Dose: 5 mg Omeprazole (Omeprazole 40 Mg Capsule.Dr) 40 mg PO DAILY@0630 FOR[facility], [facility] Last Admin: 06/03/25 06:28 Dose: 40 mg Tiotropium [place] (Tiotropium [place] 2.5 Mcg 1 Puff/2.5 Mcg Mist.Inhal) 2 puff INHALE RDAILY [facility], [facility] Last Admin: 06/03/25 08:50 Dose: 2 puff Trazodone HCl (Trazodone Hcl 50 Mg Tablet) 50 mg PO BEDTIME MRX1 PRN PRN Reason: Insomnia Last Admin: 05/23/25 23:51 Dose: 50 mg Allergies Allergies Allergy/AdvReac Type Severity Reaction Status Date / Time Seasonal Allergies Allergy Sneezing Verified 05/19/25 13:21 Assessment & Plan Assessment & Plan (1) Type 2 diabetes mellitus: Status: Acute Code(s): E11.9 - Type 2 diabetes mellitus without complications (2) Complex posttraumatic stress disorder: Status: Acute Code(s): F43.10 - Post-traumatic stress disorder, unspecified (3) Schizophrenia: Status: Acute Code(s): F20.9 - Schizophrenia, unspecified (4) Depression: Status: Acute Code(s): F32.A - Depression, unspecified (5) Anxiety: Status: Acute Code(s): F41.9 - Anxiety disorder, unspecified Plan 39-year-old female with a past medical history of type 2 diabetes, hyperlipidemia, asthma, GERD, anxiety/depression/post traumatic stress disorder, delusional disorder seen by mobile crisis unit and felt to need inpatient level of care due to delusions and medication compliance. Complex posttraumatic stress disorder/delusional disorder/depression/anxiety Treatment per psychiatric team Type 2 diabetes Diabetes well controlled A1c 6.3 Continue metformin b.i.d. 1X house pf 5 Units Lispro for BS 371 Patient being discharged , will resume her home Mounjaro Hyperlipidemia Continue Lipitor Asthma Continue Spiriva Respimat and PRN albuterol Sleep apnea Unclear if she is on CPAP. GERD Continue Prilosec Thank you for allowing me to participate in the care of this patient. Will follow as needed, please notify medical provider with any changes in condition or concerns. 06/03/25: Discharge 06/04. Reason for continued inpatient stay Substantial Risk for: rapid decompensation Time Spent With Patient Time: Total time managing care of this patient today ____ minutes.
[2025-06-03 12:04] LABS: Glucose, Whole Blood 281 mg/dL (60-115)
[2025-06-03 16:56] LABS: Glucose, Whole Blood 264 mg/dL (60-115)
[2025-06-03 20:00] VITALS: BP 112/57; PULSE 98; RESP 16; TEMP 36.9; O2SAT 97
[2025-06-03 21:50] LABS: Glucose, Whole Blood 217 mg/dL (60-115)
[2025-06-04 07:51] LABS: Glucose, Whole Blood 175 mg/dL (60-115)
[2025-06-04 08:00] VITALS: BP 116/72; PULSE 89; TEMP 37.6; O2SAT 97
[2025-06-04] MEDS: Tiotropium Bromide 2.5 mcg 1 PUFF/2.5 MCG MIST.INHAL 2 PUFF INHALE (08:43)
--- NOTE | 2025-06-04 10:38 | PM.PSYDC ---
DS: Providers Provider Date of Service: 06/04/25 Date of admission: 05/19/25 16:10 Date of discharge: 06/04/25 Primary care physician: Unknown Physician Admitting clinician: Omi Benjamin Attending physician on admission: Abbe Dickens Consults: 06/01/25 18:52 Consult to Hospitalist Routine Comment: Consulting Provider: [facility] [place] Hospitalists Reason For Exam: newly dx diabetes; med management Attending physician on discharge: Abbe Dickens Discharging clinician: Anahi Lindsay DS: Diagnosis Discharge Diagnosis (1) Type 2 diabetes mellitus: Status: Acute (2) Complex posttraumatic stress disorder: Status: Acute (3) Schizophrenia: Status: Acute (4) Depression: Status: Acute (5) Anxiety: Status: Acute DS: Medications Discharge Medications Home Medications: Previous Rx's ?Medication ?Instructions ?Recorded albuterol sulfate 90 mcg/actuation 2 puff inhalation RQ6H PRN 06/04/25 aerosol inhaler Shortness Of Breath/Wheezing #1 inhaler atorvastatin 10 mg tablet 10 mg PO BEDTIME #30 tabs 06/04/25 cetirizine 10 mg tablet 10 mg PO DAILY #30 tabs 06/04/25 cyclobenzaprine 5 mg tablet 5 mg PO DAILY #30 tabs 06/04/25 gabapentin 400 mg capsule 800 mg (2 x 400 mg) PO BID #60 caps 06/04/25 melatonin 3 mg tablet 9 mg (3 x 3 mg) PO BEDTIME #90 tabs 06/04/25 metformin 750 mg tablet,extended 750 mg PO BID #60 tabs 06/04/25 release 24 hr olanzapine 5 mg tablet 5 mg PO BID #60 tabs 06/04/25 omeprazole 40 mg capsule,delayed 40 mg PO DAILY #30 caps 06/04/25 release paliperidone palmitate 156 mg/mL 156 mg IM DIRECTED #1 mL 06/04/25 intramuscular syringe (Invega Sustenna) tiotropium bromide 2.5 2 puff inhalation RDAILY #1 inhaler 06/04/25 mcg/actuation mist for inhalation (Spiriva Respimat) tirzepatide 7.5 mg/0.5 mL 7.5 mg (0.5 mL) subcut QWEEK #2 mL 06/04/25 subcutaneous pen injector (Shelbie) trazodone 50 mg tablet 50 mg PO BEDTIME MRX1 PRN Insomnia 06/04/25 #60 tabs Mental Status Exam Mental Status Exam Patient Appearance: Appropriate Patient Orientation: Person, Place, Time and Situation Level of Consciousness: Alert Patient Behavior: Appropriate, Talkative, Cooperative and Good Eye Contact Mood Description: Calm Affect Description: Calm Patient Cognition Impaired: No Ability to Follow Directions: Good Speech Pattern: Spontaneous Speech Memory Description: Episodic Impaired Hallucinations: None Delusions: Not Present Perceptual Disturbances: Derealization Thought Process: Goal Oriented Thought Content: positive for Circumstantial, positive for Goal Oriented and positive for Suicidal Ideation (denies) Depressive Symptoms: Thoughts of /Suicide (denies) Judgement: Good Data Data Completed and Pending Completed studies during hospitalization [Text1]: 06/01/25 06/02/25 06/02/25 15:55 07:26 11:56 Creatinine 0.64 Estim Creat Clear Calc 136.7 Estimated GFR > 60 POC Glucose 371 H* Urine Color Yellow Urine Appearance Clear Urine pH 5.0 Ur Specific [place] 1.015 Urine Protein Negative Urine Glucose (UA) 500 H Urine Ketones Negative Urine Blood Negative Urine Nitrite Negative Ur Leukocyte Esterase Negative Urine RBC 0-2 Urine WBC 0-5 Ur Squamous Epith Cells 0-2 Urine Bacteria None Seen Hyaline Casts 0-2 06/02/25 06/02/25 06/03/25 17:00 21:33 03:46 Creatinine Estim Creat Clear Calc Estimated GFR POC Glucose 373 H* 404 H* 197 H Urine Color Urine Appearance Urine pH Ur Specific [place] Urine Protein Urine Glucose (UA) Urine Ketones Urine Blood Urine Nitrite Ur Leukocyte Esterase Urine RBC Urine WBC Ur Squamous Epith Cells Urine Bacteria Hyaline Casts 06/03/25 06/03/25 06/03/25 07:55 11:58 16:51 Creatinine Estim Creat Clear Calc Estimated GFR POC Glucose 182 H 281 H 264 H Urine Color Urine Appearance Urine pH Ur Specific [place] Urine Protein Urine Glucose (UA) Urine Ketones Urine Blood Urine Nitrite Ur Leukocyte Esterase Urine RBC Urine WBC Ur Squamous Epith Cells Urine Bacteria Hyaline Casts 06/03/25 06/04/25 21:45 07:47 Creatinine Estim Creat Clear Calc Estimated GFR POC Glucose 217 H 175 H Urine Color Urine Appearance Urine pH Ur Specific [place] Urine Protein Urine Glucose (UA) Urine Ketones Urine Blood Urine Nitrite Ur Leukocyte Esterase Urine RBC Urine WBC Ur Squamous Epith Cells Urine Bacteria Hyaline Casts DS: Summary Hospital Course Hospital Course: Admission to adult psychiatry for exacerbation of schizophrenia, PTSD. Pt uses cannabis daily, since age 11 she reports. On admission, she is religiously focused. Team reports increase of symptoms may be related to a change in her housing and routine prior to her admission. Medications were evaluated and adjusted. Invega Sustenna was initiated. Pt participated in the milieu and was able to strengthen her coping skills. She was able to stabilize, had good community support during her stay, and will return to her team of CHD, N, VNA and her partner. Status at Discharge Functional status at discharge: independent ambulation Overall status at discharge: patient is progressing back to baseline Time Spent with Patient Time attestation: Total time managing care of this patient today ____ minutes. Time spent: Less than 30 minutes Discharge Plan Discharge Anticipated Discharge Date/Time: 06/04/25 11:00 Patient Disposition: Home, Self-Care Discharge Diagnosis: Schizophrenia PTSD Delusional Disorder Major Depression RISHI HLD DMII Referrals: [facility] Visiting RN [Other] - 1 Week Referral Note: Visiting RN will follow up with the ct on 06/05/25 to arrange a visit for 06/05/25. She will reach out via text. Psychiatry with Severiano Dwyer [Other] - 07/02/25 10:[address] Laguna [Other] - 06/30/25 2:00 pm Toby Medrano [facility] (Low Threshold Housing) Clerical Stock Inspector [Other] - 06/05/25 Referral Note: Social work recommends Toby support and attend the meeting with the VNA. [facility] Desktop Technician Marlena [Other] - 06/08/25 10:00 am Referral Note: Marlena Henson) will meet with you along with Terell and Toby on Sunday. Marlena can support you in getting a new phone, services through [facility] and placing referrals for other services you both discuss. [facility] Community Support Nurse Terell [Other] - 06/08/25 10:00 am Referral Note: Terell will meet with you in the community and will try to be at the meeting with Marlena on Sunday. Therapy with Mahnaz Gonzales [Other] - 06/23/25 10:00 am Discharge Medications: New trazodone 50 mg Tablet 50 mg PO BEDTIME MRX1 PRN (Reason: Insomnia) Qty: 60 0RF atorvastatin 10 mg Tablet 10 mg PO BEDTIME Qty: 30 0RF gabapentin 400 mg Capsule 800 mg PO BID Qty: 60 0RF olanzapine 5 mg Tablet 5 mg PO BID Qty: 60 0RF melatonin 3 mg Tablet 9 mg PO BEDTIME Qty: 90 0RF albuterol sulfate 90 mcg/actuation Hfa Aerosol Inhaler 2 puff inhalation RQ6H PRN (Reason: Shortness Of Breath/Wheezing) Qty: 1 0RF cyclobenzaprine 5 mg Tablet 5 mg PO DAILY Qty: 30 0RF Spiriva Respimat 2.5 mcg/actuation Mist 2 puff inhalation RDAILY Qty: 1 0RF Invega Sustenna 156 mg/mL syringe 156 mg IM DIRECTED Qty: 1 1RF Rx Instructions: Give one dose on 06/11/25. Give one dose on 07/12/25. Mounjaro 7.5 mg/0.5 mL pen injector 7.5 mg subcut QWEEK Qty: 2 0RF cetirizine 10 mg tablet 10 mg PO DAILY Qty: 30 0RF metformin 750 mg tablet extended release 24 hr 750 mg PO BID Qty: 60 0RF omeprazole 40 mg capsule,delayed release(DR/EC) 40 mg PO DAILY Qty: 30 0RF Discontinued cetirizine 10 mg tablet 10 mg PO DAILY omeprazole 40 mg capsule,delayed release(DR/EC) 40 mg PO DAILY gabapentin 800 mg tablet 800 mg PO BID cyclobenzaprine 5 mg tablet 5 mg PO DAILY metformin 750 mg tablet extended release 24 hr 750 mg PO BID Discharge Orders: Discharge Order (Routine); Ordered 06/04/25 Ordered By: Anahi Lindsay Diet: Diabetic diet Activity on Discharge: As tolerated Stand Alone Forms: Patient Portal Discharge page, Community Support Print Language: Lithuanian Care Plan Goals: Mood and Behavioral Stabilization Health Concerns: Mood and Behavioral Stabilization Plan of Treatment: Attend scheduled appointments Take medications as directed with VNA support Assessment: Denies SI,HI,AH,VH No sx of acute andreina or psychosis Agrees with her plan of care. Discharge Date/Time: 06/04/25 11:41
== END 2025-06-04 11:41 | disposition home or self-care (01) | DRG 750 ==
LOC: HO.ED 14:45 → HO.PM5 16:42
PROVIDERS: Emergency Medicine; Nurse Practitioner Family; Psychiatry & Neurology Psychiatry; Admitting Provider Clinical Nurse Specialist Psychiatric/Mental Health, Adult; Emergency Provider Emergency Medicine; Visit Provider Clinical Nurse Specialist Psychiatric/Mental Health, Adult
DX: F20.9 Schizophrenia, unspecified (principal); E11.9 Type 2 diabetes mellitus without complications; E78.5 Hyperlipidemia, unspecified; G47.33 Obstructive sleep apnea (adult) (pediatric); F41.9 Anxiety disorder, unspecified; F43.10 Post-traumatic stress disorder, unspecified; K21.9 Gastro-esophageal reflux disease without esophagitis; J45.909 Unspecified asthma, uncomplicated; F32.A Depression, unspecified; Z79.899 Other long term (current) drug therapy
CPT/HCPCS: 36415; 80053; 80061; 80076; 80307; 81001; 81025; 82150; 82565; 82607; 82746; 82947; 83036; 83690; 83735; 84439; 84443; 85025; 85048; 86704; 86706; 86709; 86803; 87340; 99285; J2426

== ENCOUNTER → 2025-05-19 16:10 | Outpatient (BNV) | payer MEDICAID, SELFPAY | PROVIDERS: Admitting Provider Clinical Nurse Specialist Psychiatric/Mental Health, Adult; Emergency Provider Emergency Medicine; Visit Provider Nurse Practitioner Family | DX: E11.9 Type 2 diabetes mellitus without complications (principal) | CPT/HCPCS: 99231 ==

== ENCOUNTER → 2025-05-19 16:10 | Outpatient (BNV) | payer OTHER, SELFPAY | PROVIDERS: Admitting Provider Clinical Nurse Specialist Psychiatric/Mental Health, Adult; Emergency Provider Emergency Medicine; Visit Provider Nurse Practitioner Family | DX: F32.2 Major depressive disorder, single episode, severe without psychotic features (principal); F20.9 Schizophrenia, unspecified; F41.9 Anxiety disorder, unspecified; E11.9 Type 2 diabetes mellitus without complications; F43.10 Post-traumatic stress disorder, unspecified; E78.5 Hyperlipidemia, unspecified; G47.30 Sleep apnea, unspecified | CPT/HCPCS: 99231; 99232 ==